=== PATIENT | female | born 1985 | race Caucasian/White ===

== ENCOUNTER 2019-04-07 11:18 | Emergency (ER) | payer MEDICAID ==
[~2019-04-07] VITALS: Ht 162.6 cm; Wt 86.2 kg
[2019-04-07 11:58] LABS: Urine Bacteria FEW /hpf (None Seen); Urine Blood Negative /uL (Negative); Urine Specific Gravity 1.012 (1.001-1.035); Urine WBC <1 /hpf (0 - 5)
[2019-04-07 12:11] LABS: Basophils # (auto) 0 uL; Basophils % (auto) 0.7 % (0.0-2.0); Eosinophils # (auto) 0.1 uL; Eosinophils % (auto) 1.6 % (0.0-7.0); Hematocrit 43.2 % (36.0-46.0); Hemoglobin 14.6 g/dL (12.2-16.2); Lymphocytes # (auto) 1.2 uL; Lymphocytes % (auto) 17.6 % (10.0-50.0); Mean Corpuscular Hgb Conc. 33.7 g/dL (32.0-36.0); Mean Corpuscular Volume 80.3 fL (80.0-100.0); Monocytes # (auto) 0.4 uL; Monocytes % (auto) 6.8 % (0.0-12.0); Neutrophils # (auto) 4.9 uL; Neutrophils % (auto) 73.3 % (37.0-80.0); Nucleated Red Blood Cells % 0.1 %; Platelet Count (auto) 220 10^3/uL (140-450); Red Blood Cells 5.39 10^6/uL (4.0-5.20); Red Cell Distribution Width 13.5 % (11.8-14.3); White Blood Cell 6.6 10^3/uL (4.4-10.8)
[2019-04-07 12:29] LABS: Albumin 3.7 g/dL (3.4-5.0); Anion Gap 5 (5-15); Blood Urea Nitrogen 10 mg/dL (7-18); Calcium 8.5 mg/dL (8.5-10.1); Carbon Dioxide 27 mmol/L (21-32); Chloride 108 mmol/L (98-107); Glucose 95 mg/dL (74-106); Magnesium 2.3 mg/dL (1.6-2.6); Sodium 140 mmol/L (136-145)
[2019-04-07 12:35] LABS: Alanine Aminotransferase 30 U/L (13-56); Alkaline Phosphatase 85 U/L (45-117); Aspartate Aminotransferase 18 U/L (15-37); BUN/Creatinine Ratio 11.5; Bilirubin, Total 0.2 mg/dL (0.2-1.0); GFR African American 95 mL/min; GFR Non-African American 78 mL/min; Total Protein 8.4 g/dL (6.4-8.2)
[2019-04-07 14:30] VITALS: BP 138/88
== END 2019-04-07 14:52 | disposition home or self-care (01) ==
LOC: ER 11:18
DX: R42 Dizziness and giddiness (principal); R06.02 Shortness of breath; R51 Headache; F17.210 Nicotine dependence, cigarettes, uncomplicated; Z98.51 Tubal ligation status; Z90.710 Acquired absence of both cervix and uterus; Z88.0 Allergy status to penicillin
CPT/HCPCS: 36415; 70450; 71046; 80053; 81001; 83735; 84484; 85025; 93005

== ENCOUNTER 2022-07-08 08:32 | Emergency (ER) | payer MEDICAID ==
[~2022-07-08] VITALS: Ht 167.6 cm; Wt 76.0 kg
[2022-07-08] MEDS ORDERED: ASPirin 81 mg TAB PO ONE (09:00)
[2022-07-08 09:13] LABS: Basophils # (auto) 0 10 ^3/uL (0-0.2); Basophils % (auto) 0.5 % (0.0-2.0); Eosinophils # (auto) 0 10 ^3/uL (0-0.8); Eosinophils % (auto) 0.9 % (0.0-7.0); Hematocrit 40.6 % (36.0-46.0); Hemoglobin 13.9 g/dL (12.2-16.2); Lymphocytes # (auto) 0.9 10 ^3/uL (0.4-5.4); Lymphocytes % (auto) 20.9 % (10.0-50.0); Mean Corpuscular Hemoglobin 27.2 pg (28.0-32.0); Mean Corpuscular Hgb Conc. 34.1 g/dL (32.0-36.0); Mean Corpuscular Volume 79.8 fL (80.0-100.0); Monocytes # (auto) 0.3 10 ^3/uL (0-1.3); Monocytes % (auto) 7.9 % (0.0-12.0); Neutrophils % (auto) 69.8 % (37.0-80.0); Nucleated Red Blood Cells % 0.1 %; Red Blood Cells 5.09 10^6/uL (4.0-5.20); Red Cell Distribution Width 12.8 % (11.8-14.3); White Blood Cell 4.3 10^3/uL (4.4-10.8)
[2022-07-08 09:39] LABS: Albumin 3.8 g/dL (3.4-5.0); Calcium 8.5 mg/dL (8.5-10.1); Magnesium 2.1 mg/dL (1.6-2.6); Potassium 4.4 mmol/L (3.5-5.1)
[2022-07-08 09:43] LABS: BUN/Creatinine Ratio 27.3; Bilirubin, Total 0.3 mg/dL (0.2-1.0); Total Protein 7.6 g/dL (6.4-8.2)
[2022-07-08 10:09] LABS: Urine Bacteria FEW /hpf (None Seen); Urine Blood Negative /uL (Negative); Urine Specific Gravity 1.023 (1.001-1.035); Urine WBC <1 /hpf (0 - 5)
[2022-07-08 12:39] VITALS: BP 127/86
== END 2022-07-08 12:41 | disposition home or self-care (01) ==
LOC: ER 08:32
DX: R07.89 Other chest pain (principal); Z98.51 Tubal ligation status; Z90.710 Acquired absence of both cervix and uterus; Z87.891 Personal history of nicotine dependence; Z88.0 Allergy status to penicillin
CPT/HCPCS: 36415; 71045; 80053; 81001; 83735; 83880; 84484; 85025; 85379; 93005

== ENCOUNTER 2023-01-25 18:27 | Emergency (ER) | payer MEDICAID ==
[~2023-01-25] VITALS: Ht 167.6 cm; Wt 75.0 kg
[2023-01-25 18:43] VITALS: BP 122/82
== END 2023-01-25 20:57 | disposition left against medical advice (07) ==
LOC: ER 18:27 → EDBD 18:27 → ER 20:57
DX: F41.9 Anxiety disorder, unspecified (principal); R06.02 Shortness of breath; Z53.21 Procedure and treatment not carried out due to patient leaving prior to being seen by health care provider

== ENCOUNTER 2023-01-28 13:12 | Inpatient (IN) | payer MEDICAID ==
[~2023-01-28] VITALS: Ht 167.6 cm; Wt 76.1 kg
[2023-01-28 13:56] LABS: Basophils # (auto) 0 10 ^3/uL (0-0.2); Basophils % (auto) 0.7 % (0.0-2.0); Eosinophils # (auto) 0 10 ^3/uL (0-0.8); Eosinophils % (auto) 0.3 % (0.0-7.0); Hematocrit 40.3 % (36.0-46.0); Hemoglobin 13.3 g/dL (12.2-16.2); Lymphocytes % (auto) 17.7 % (10.0-50.0); Mean Corpuscular Hemoglobin 26.2 pg (28.0-32.0); Mean Corpuscular Hgb Conc. 33.1 g/dL (32.0-36.0); Mean Corpuscular Volume 79.1 fL (80.0-100.0); Monocytes # (auto) 0.3 10 ^3/uL (0-1.3); Monocytes % (auto) 5.7 % (0.0-12.0); Neutrophils # (auto) 4.2 10 ^3/uL (1.6-8.6); Neutrophils % (auto) 75.6 % (37.0-80.0); Nucleated Red Blood Cells % 0.2 %; Red Blood Cells 5.09 10^6/uL (4.0-5.20); Red Cell Distribution Width 13.2 % (11.8-14.3); White Blood Cell 5.5 10^3/uL (4.4-10.8)
[2023-01-28 14:11] LABS: INR 1.02 (0.9-1.15)
[2023-01-28 14:18] LABS: Albumin 3.9 g/dL (3.4-5.0); Calcium 8.8 mg/dL (8.5-10.1); Magnesium 2.2 mg/dL (1.6-2.6); Potassium 3.8 mmol/L (3.5-5.1)
[2023-01-28 14:22] LABS: BUN/Creatinine Ratio 20.7 (10.0-20.0); Bilirubin, Total 0.4 mg/dL (0.2-1.0); Total Protein 7.5 g/dL (6.4-8.2)
[2023-01-28] MEDS ORDERED: IOHEXOL 350 MG/ML 100ML IJ ONE (14:34)
[2023-01-28 15:35] LABS: Urine Bacteria FEW /hpf (None Seen); Urine Blood Negative /uL (Negative); Urine Mucus FEW (None Seen); Urine Specific Gravity 1.022 (1.001-1.035); Urine WBC <1 /hpf (0 - 5)
[2023-01-28 15:40] LABS: Alcohol, Urine < 3.0 mg/dL (0-10); Amphetamine Screen, Urine NEGATIVE (NEGATIVE); Barbiturate Scree,Urine NEGATIVE (NEGATIVE); Benzodiazephine Screen, Urine NEGATIVE (NEGATIVE); Cannabinoid Screen, Urine NEGATIVE (NEGATIVE); Cocaine Screen, Urine NEGATIVE (NEGATIVE); Phencyclidine Screen, Urine NEGATIVE (NEGATIVE)
[2023-01-28 15:59] LABS: Opiate Scree,Urine NEGATIVE (NEGATIVE)
[2023-01-28] MEDS ORDERED: POTASSIUM CHL 20 Meq TABLET PO ONE (17:45)
[2023-01-28] MEDS ORDERED: NITROGLYCERIN 0.4 MG SL TAB SL PRN (17:45)
[2023-01-28] MEDS ORDERED: MORPHINE SULFATE INJ 2 MG/ml SYRG IV PRN (17:45)
[2023-01-28] MEDS ORDERED: ALBUTEROL SULF 2.5 MG/0.5ML(0.5%) NEB SOLN NEB PRN (18:00)
[2023-01-28 18:19] VITALS: BP 117/76
[2023-01-28] MEDS ORDERED: ALPRAZolam 0.5 MG TAB PO PRN (18:30)
[2023-01-28] MEDS ORDERED: PANTOPRAZOLE 40 MG/10 ML VIAL INJ IV ONE (18:30)
[2023-01-28] MEDS ORDERED: ASPirin 81 mg TAB PO ONE (18:30)
[2023-01-28] MEDS: ENOXAPARIN SOD 40 MG/0.4 ML SYRINGE SC SCH (18:41)
[2023-01-28] MEDS: MAGNESIUM SULFATE 1GM/100ML 100 ML IV SCH (18:42)
[2023-01-28] MEDS: SODIUM CHLORIDE 0.9% 1,000 ML IV SCH (19:02)
[2023-01-28 19:57] LABS: Free T4 (Free Thyroxine) 1.11 ng/dL (0.89-1.76)
[2023-01-28 21:40] VITALS: BP 112/62
[2023-01-28 22:00] VITALS: BP 112/62
[2023-01-28] MEDS: ATORVASTATIN 20 MG TAB PO SCH (22:25)
[2023-01-29] MEDS: SODIUM CHLORIDE 0.9% 1,000 ML IV SCH ×2 (01:45→10:39)
[2023-01-29] MEDS ORDERED: BECL40AE11 IN (02:49)
[2023-01-29 05:42] LABS: Basophils # (auto) 0 10 ^3/uL (0-0.2); Basophils % (auto) 0.9 % (0.0-2.0); Eosinophils # (auto) 0.1 10 ^3/uL (0-0.8); Hematocrit 38.1 % (36.0-46.0); Lymphocytes # (auto) 1.5 10 ^3/uL (0.4-5.4); Monocytes # (auto) 0.5 10 ^3/uL (0-1.3)
[2023-01-29 05:45] LABS: Eosinophils % (auto) 1.8 % (0.0-7.0); Hemoglobin 12.8 g/dL (12.2-16.2); Lymphocytes % (auto) 32.1 % (10.0-50.0); Mean Corpuscular Hemoglobin 26.8 pg (28.0-32.0); Mean Corpuscular Hgb Conc. 33.6 g/dL (32.0-36.0); Mean Corpuscular Volume 79.8 fL (80.0-100.0); Monocytes % (auto) 10.7 % (0.0-12.0); Neutrophils # (auto) 2.5 10 ^3/uL (1.6-8.6); Neutrophils % (auto) 54.5 % (37.0-80.0); Nucleated Red Blood Cells % 0.2 %; Red Blood Cells 4.77 10^6/uL (4.0-5.20); Red Cell Distribution Width 13.2 % (11.8-14.3); White Blood Cell 4.6 10^3/uL (4.4-10.8)
[2023-01-29 05:49] LABS: Potassium 4.3 mmol/L (3.5-5.1)
[2023-01-29 05:59] LABS: Albumin 3.2 g/dL (3.4-5.0); BUN/Creatinine Ratio 20.6 (10.0-20.0); Bilirubin, Total 0.2 mg/dL (0.2-1.0); Calcium 8.3 mg/dL (8.5-10.1); Total Protein 6.8 g/dL (6.4-8.2)
[2023-01-29 09:00] VITALS: BP 110/62
[2023-01-29] MEDS ORDERED: PANTOPRAZOLE 40 MG/10 ML VIAL INJ IV SCH (10:00)
[2023-01-29] MEDS: ASPirin 81 mg TAB PO SCH (10:39)
[2023-01-29] MEDS: ENOXAPARIN SOD 40 MG/0.4 ML SYRINGE SC SCH (10:40)
[2023-01-29] MEDS: METOPROLOL TARTRATE 25 MG TAB PO SCH ×2 (10:40→22:01)
[2023-01-29] MEDS: MAGNESIUM SULFATE 1GM/100ML 100 ML IV SCH (11:30)
[2023-01-29 13:00] VITALS: BP 118/72
[2023-01-29 17:00] VITALS: BP 108/70
[2023-01-29] MEDS: ATORVASTATIN 20 MG TAB PO SCH (21:59)
[2023-01-29 22:00] VITALS: BP 118/69
[2023-01-30 05:00] VITALS: BP_SYST 113; BP_SYST 99; BP_DIAS 52; BP_DIAS 68
[2023-01-30 08:00] VITALS: BP 107/65
[2023-01-30] MEDS: MAGNESIUM SULFATE 1GM/100ML 100 ML IV SCH (10:00)
[2023-01-30] MEDS: ASPirin 81 mg TAB PO SCH (10:03)
[2023-01-30] MEDS: ENOXAPARIN SOD 40 MG/0.4 ML SYRINGE SC SCH (10:04)
[2023-01-30] MEDS: METOPROLOL TARTRATE 25 MG TAB PO SCH (10:04)
[2023-01-30] MEDS ORDERED: ALPR0.25 PO (11:17)
[2023-01-30] MEDS ORDERED: MET25T PO (11:17)
[2023-01-30] MEDS ORDERED: ATOR20TA50 PO (11:17)
[2023-01-30 12:00] VITALS: BP 116/77
[2023-01-30 12:17] VITALS: BP 107/65
== END 2023-01-30 14:00 | disposition home or self-care (01) | DRG 201 ==
LOC: EDUNIT# 13:12 → EDBD 13:12 → ER 13:12 → TELE 17:55 → TELE-CENTR 21:20
PROVIDERS: ADMIT Registered Nurse; ATTEND Nurse Practitioner Acute Care
DX: I47.1 Supraventricular tachycardia (principal); E78.5 Hyperlipidemia, unspecified; F17.200 Nicotine dependence, unspecified, uncomplicated; F32.A Depression, unspecified; F41.9 Anxiety disorder, unspecified; Z20.822 Contact with and (suspected) exposure to COVID-19; R55 Syncope and collapse; J45.909 Unspecified asthma, uncomplicated; Z79.899 Other long term (current) drug therapy; Z85.41 Personal history of malignant neoplasm of cervix uteri; Z88.0 Allergy status to penicillin; Z90.711 Acquired absence of uterus with remaining cervical stump; Z98.51 Tubal ligation status; Z81.8 Family history of other mental and behavioral disorders; Z82.49 Family history of ischemic heart disease and other diseases of the circulatory system; Z83.3 Family history of diabetes mellitus; Z85.42 Personal history of malignant neoplasm of other parts of uterus; Z90.710 Acquired absence of both cervix and uterus
CPT/HCPCS: 36415; 70450; 70551; 71045; 71275; 80053; 80307; 81001; 83735; 83880; 84439; 84443; 84481; 84484; 85025; 85379; 85610; 85730; 87426; 93005; 93306; 93886; 95819; 96365; 96372; 96375; C9113; G0378

== ENCOUNTER 2023-07-27 12:12 | Emergency (ER) | payer MEDICAID ==
[~2023-07-27] VITALS: Ht 167.6 cm; Wt 78.1 kg
[~2023-07-27 12:12] MED LIST: ALPR0.25 PO; ATOR20TA50 PO; BECL40AE11 IN; MET25T PO
[2023-07-27 13:17] LABS: Basophils # (auto) 0 10 ^3/uL (0-0.2); Eosinophils # (auto) 0 10 ^3/uL (0-0.8); Lymphocytes # (auto) 0.8 10 ^3/uL (0.4-5.4); Lymphocytes % (auto) 16.3 % (10.0-50.0); Mean Corpuscular Hgb Conc. 32.8 g/dL (32.0-36.0); Monocytes # (auto) 0.4 10 ^3/uL (0-1.3); Neutrophils # (auto) 3.8 10 ^3/uL (1.6-8.6); White Blood Cell 5.1 10^3/uL (4.4-10.8)
[2023-07-27 13:19] LABS: Basophils % (auto) 0.3 % (0.0-2.0); Eosinophils % (auto) 0.2 % (0.0-7.0); Hematocrit 41.6 % (36.0-46.0); Hemoglobin 13.7 g/dL (12.2-16.2); Mean Corpuscular Hemoglobin 26.6 pg (28.0-32.0); Mean Corpuscular Volume 81.1 fL (80.0-100.0); Monocytes % (auto) 8.6 % (0.0-12.0); Neutrophils % (auto) 74.6 % (37.0-80.0); Red Blood Cells 5.14 10^6/uL (4.0-5.20); Red Cell Distribution Width 13.1 % (11.8-14.3)
[2023-07-27] MEDS ORDERED: IOHEXOL 350 MG/ML 100ML IJ ONE (13:24)
[2023-07-27 13:34] LABS: Alanine Aminotransferase 72 U/L (7-40); Albumin 4.3 g/dL (3.2-4.8); Alkaline Phosphatase 67 U/L (46-116); Anion Gap 6 (5-15); Aspartate Aminotransferase 39 U/L (13-40); BUN/Creatinine Ratio 13.2 (10.0-20.0); Blood Urea Nitrogen 9 mg/dL (9-23); Calcium 8.9 mg/dL (8.7-10.4); Carbon Dioxide 25 mmol/L (20-30); Chloride 108 mmol/L (98-107); Glucose 101 mg/dL (74-106); Magnesium 1.9 mg/dL (1.6-2.6); Sodium 139 mmol/L (136-145)
[2023-07-27 13:35] LABS: Bilirubin, Total 0.4 mg/dL (0.2-1.0); Total Protein 7.4 g/dL (5.7-8.2)
[2023-07-27 14:20] LABS: INR 1.04 (0.9-1.15); Partial Thromboplastin Time 28.7 SEC (24.5-34.5); Prothrombin Time 10.9 sec (9.3-11.8)
[2023-07-27 14:49] VITALS: BP 132/84; PULSE 107; RESP 18; TEMP 97.8; O2SAT 99
== END 2023-07-27 14:15 | disposition home or self-care (01) ==
LOC: ER 12:12
DX: R20.2 Paresthesia of skin (principal); R20.0 Anesthesia of skin; E78.5 Hyperlipidemia, unspecified; F32.9 Major depressive disorder, single episode, unspecified; Z98.51 Tubal ligation status; Z87.891 Personal history of nicotine dependence; Z79.01 Long term (current) use of anticoagulants; Z79.899 Other long term (current) drug therapy
CPT/HCPCS: 36415; 70450; 70496; 71045; 80053; 82962; 83735; 83880; 84484; 85025; 85610; 85730; 99285; Q9967

== ENCOUNTER 2024-01-19 19:40 | Emergency (ER) | payer MEDICAID ==
[~2024-01-19] VITALS: Ht 167.6 cm; Wt 76.4 kg
[2024-01-19 20:03] LABS: Basophils # (auto) 0 10 ^3/uL (0-0.2); Basophils % (auto) 0.6 % (0.0-2.0); Eosinophils # (auto) 0.1 10 ^3/uL (0-0.8); Eosinophils % (auto) 0.8 % (0.0-7.0); Lymphocytes # (auto) 1.5 10 ^3/uL (0.4-5.4); Monocytes # (auto) 0.6 10 ^3/uL (0-1.3)
[2024-01-19 20:06] LABS: Hematocrit 42.3 % (36.0-46.0); Hemoglobin 13.9 g/dL (12.2-16.2); Lymphocytes % (auto) 24.6 % (10.0-50.0); Mean Corpuscular Hemoglobin 26.3 pg (28.0-32.0); Mean Corpuscular Hgb Conc. 32.8 g/dL (32.0-36.0); Mean Corpuscular Volume 80.2 fL (80.0-100.0); Monocytes % (auto) 9.6 % (0.0-12.0); Neutrophils % (auto) 64.4 % (37.0-80.0); Nucleated Red Blood Cells % 0.2 %; Red Blood Cells 5.27 10^6/uL (4.0-5.20); Red Cell Distribution Width 12.5 % (11.8-14.3); White Blood Cell 6.2 10^3/uL (4.4-10.8)
[2024-01-19 20:26] LABS: Alanine Aminotransferase 20 U/L (7-40); Alkaline Phosphatase 69 U/L (46-116); Anion Gap 8 (5-15); Aspartate Aminotransferase 17 U/L (13-40); BUN/Creatinine Ratio 14.7 (10.0-20.0); Blood Urea Nitrogen 10 mg/dL (9-23); Calcium 9.5 mg/dL (8.5-10.1); Carbon Dioxide 25 mmol/L (20-30); Chloride 107 mmol/L (98-107); Glucose 87 mg/dL (74-106); Magnesium 1.9 mg/dL (1.6-2.6); Potassium 4.1 mmol/L (3.5-5.1); Sodium 140 mmol/L (136-145)
[2024-01-19 20:27] LABS: Albumin 4.2 g/dL (3.2-4.8); INR 1.05 (0.9-1.15); Partial Thromboplastin Time 27.8 SEC (24.5-34.5); Prothrombin Time 11.1 sec (9.3-11.8); Total Protein 7.3 g/dL (5.7-8.2)
[2024-01-19 20:28] LABS: Bilirubin, Total 0.4 mg/dL (0.2-1.0)
[2024-01-19 21:10] VITALS: BP 113/70; PULSE 93; RESP 16; TEMP 98.9; O2SAT 96
== END 2024-01-19 20:45 | disposition home or self-care (01) ==
LOC: ER 19:40
DX: R07.89 Other chest pain (principal); M54.59 Other low back pain; F41.9 Anxiety disorder, unspecified; F32.9 Major depressive disorder, single episode, unspecified; E78.5 Hyperlipidemia, unspecified; Z85.9 Personal history of malignant neoplasm, unspecified; Z98.890 Other specified postprocedural states; Z88.0 Allergy status to penicillin; Z88.2 Allergy status to sulfonamides; Z79.899 Other long term (current) drug therapy
CPT/HCPCS: 36415; 71045; 80053; 83735; 83880; 84484; 85025; 85610; 85730; 93005

== ENCOUNTER 2024-01-22 08:40 | Inpatient (IN) | payer MEDICAID ==
[~2024-01-22] VITALS: Ht 167.6 cm; Wt 76.7 kg
[2024-01-22 09:19] LABS: Basophils # (auto) 0 10 ^3/uL (0-0.2); Basophils % (auto) 0.4 % (0.0-2.0); Eosinophils # (auto) 0 10 ^3/uL (0-0.8); Neutrophils # (auto) 5.6 10 ^3/uL (1.6-8.6); Nucleated Red Blood Cells % 0.1 %
[2024-01-22 09:21] LABS: Eosinophils % (auto) 0.5 % (0.0-7.0); Hematocrit 43.6 % (36.0-46.0); Hemoglobin 14.3 g/dL (12.2-16.2); Lymphocytes # (auto) 0.8 10 ^3/uL (0.4-5.4); Mean Corpuscular Hemoglobin 26.4 pg (28.0-32.0); Mean Corpuscular Hgb Conc. 32.9 g/dL (32.0-36.0); Mean Corpuscular Volume 80.3 fL (80.0-100.0); Monocytes # (auto) 0.5 10 ^3/uL (0-1.3); Monocytes % (auto) 7.2 % (0.0-12.0); Neutrophils % (auto) 79.9 % (37.0-80.0); Red Blood Cells 5.43 10^6/uL (4.0-5.20); Red Cell Distribution Width 12.7 % (11.8-14.3)
[2024-01-22 09:41] LABS: Urine Bacteria FEW /hpf (None Seen); Urine Blood Negative /uL (Negative); Urine Clarity Turbid (Clear); Urine Color Yellow (Yellow); Urine Mucus FEW (None Seen); Urine Protein, UAD TRACE (Negative); Urine Specific Gravity 1.037 (1.001-1.035); Urine Urobilinogen 2 mg/dL (Negative); Urine WBC 1 /hpf (0 - 5); Urine pH 5.5 (5.0-9.0)
[2024-01-22 09:50] LABS: Alanine Aminotransferase 19 U/L (7-40); Albumin 4.3 g/dL (3.2-4.8); Alkaline Phosphatase 68 U/L (46-116); Anion Gap 7 (5-15); Aspartate Aminotransferase 11 U/L (13-40); BUN/Creatinine Ratio 18.3 (10.0-20.0); Bilirubin, Total 0.5 mg/dL (0.2-1.0); Blood Urea Nitrogen 13 mg/dL (9-23); Calcium 9.8 mg/dL (8.5-10.1); Carbon Dioxide 26 mmol/L (20-30); Chloride 107 mmol/L (98-107); Glucose 90 mg/dL (74-106); Magnesium 1.9 mg/dL (1.6-2.6); Potassium 3.8 mmol/L (3.5-5.1); Sodium 140 mmol/L (136-145); Total Protein 7.7 g/dL (5.7-8.2)
[2024-01-22] MEDS: ASPirin 325 MG TAB PO ONE (11:36)
[2024-01-22] MEDS: NITROGLYCERIN 0.4 MG SL TAB SL ONE (11:37)
[2024-01-22] MEDS ORDERED: ACETAMINOPHEN 325 MG TAB PO PRN (14:15)
[2024-01-22] MEDS ORDERED: ONDANSETRON HCL 4 MG/2 ML VIAL IV PRN (14:15)
[2024-01-22] MEDS ORDERED: MORPHINE SULFATE 4 MG/ML SYR/VIAL IV PRN (14:15)
[2024-01-22] MEDS ORDERED: NITROGLYCERIN 0.4 MG SL TAB SL PRN (14:15)
[2024-01-22] MEDS: DexAMETHasone SOD PHOS 10MG/1ML VIAL INJ IV ONE (15:08)
[2024-01-22] MEDS: KETOROLAC TROMETH 30 MG/ML 1ML VIAL IV ONE (15:08)
[2024-01-22 16:07] LABS: INR 1.08 (0.9-1.15); Prothrombin Time 11.4 sec (9.3-11.8)
[2024-01-22 18:22] VITALS: PULSE 84; RESP 20; O2SAT 96
[2024-01-22] MEDS: DexAMETHasone SOD PHOS 4 MG/1ML SDV INJ IV SCH (18:46)
[2024-01-22 19:47] VITALS: BP 114/54; PULSE 98; RESP 17; TEMP 98.6; O2SAT 99
[2024-01-22] MEDS ORDERED: METOPROLOL TARTRATE 25 MG TAB PO SCH (22:00)
[2024-01-22] MEDS ORDERED: KETOROLAC TROMETH 30 MG/ML 1ML VIAL IV PRN (22:00)
[2024-01-22] MEDS ORDERED: ATORVASTATIN 20 MG TAB PO SCH (22:00)
[2024-01-23] MEDS ORDERED: DOCUSATE SOD 100 MG CAP PO SCH (10:00)
[2024-01-23] MEDS ORDERED: ASPirin 81 mg TAB PO SCH (10:00)
== END 2024-01-22 20:09 | disposition left against medical advice (07) | DRG 347 ==
LOC: ER 08:40 → TELE 14:20
PROVIDERS: ADMIT Nurse Practitioner Family; ATTEND Nurse Practitioner Family
DX: M54.2 Cervicalgia (principal); I24.9 Acute ischemic heart disease, unspecified; I47.10 Supraventricular tachycardia, unspecified; M25.512 Pain in left shoulder; Z53.29 Procedure and treatment not carried out because of patient's decision for other reasons; I10 Essential (primary) hypertension; F41.9 Anxiety disorder, unspecified; F32.A Depression, unspecified; E78.5 Hyperlipidemia, unspecified; Z88.0 Allergy status to penicillin; Z88.2 Allergy status to sulfonamides; Z79.899 Other long term (current) drug therapy; Z85.41 Personal history of malignant neoplasm of cervix uteri; Z90.710 Acquired absence of both cervix and uterus
CPT/HCPCS: 36415; 73030; 80053; 81001; 81025; 83735; 84484; 85025; 85610; 93005; G0378; J1100; J1885

== ENCOUNTER 2024-01-27 08:54 | Emergency (ER) | payer MEDICAID ==
[~2024-01-27] VITALS: Ht 167.6 cm; Wt 75.9 kg
[2024-01-27 09:19] LABS: Basophils # (auto) 0 10 ^3/uL (0-0.2); Basophils % (auto) 0.4 % (0.0-2.0); Eosinophils # (auto) 0.1 10 ^3/uL (0-0.8); Eosinophils % (auto) 1.1 % (0.0-7.0); Hematocrit 41.5 % (36.0-46.0); Hemoglobin 13.6 g/dL (12.2-16.2); Lymphocytes # (auto) 1.1 10 ^3/uL (0.4-5.4); Lymphocytes % (auto) 16.8 % (10.0-50.0); Mean Corpuscular Hemoglobin 26.3 pg (28.0-32.0); Mean Corpuscular Hgb Conc. 32.7 g/dL (32.0-36.0); Mean Corpuscular Volume 80.5 fL (80.0-100.0); Monocytes # (auto) 0.6 10 ^3/uL (0-1.3); Monocytes % (auto) 9.5 % (0.0-12.0); Neutrophils # (auto) 4.6 10 ^3/uL (1.6-8.6); Neutrophils % (auto) 72.2 % (37.0-80.0); Red Blood Cells 5.16 10^6/uL (4.0-5.20); Red Cell Distribution Width 12.7 % (11.8-14.3); White Blood Cell 6.4 10^3/uL (4.4-10.8)
[2024-01-27 09:32] LABS: Alanine Aminotransferase 18 U/L (7-40); Albumin 4.1 g/dL (3.2-4.8); Alkaline Phosphatase 62 U/L (46-116); Anion Gap 3 (5-15); Aspartate Aminotransferase 12 U/L (13-40); BUN/Creatinine Ratio 13.3 (10.0-20.0); Blood Urea Nitrogen 10 mg/dL (9-23); Calcium 9.2 mg/dL (8.5-10.1); Carbon Dioxide 28 mmol/L (20-30); Chloride 108 mmol/L (98-107); Glucose 96 mg/dL (74-106); Potassium 4.2 mmol/L (3.5-5.1); Sodium 139 mmol/L (136-145)
[2024-01-27 09:33] LABS: Bilirubin, Total 0.5 mg/dL (0.2-1.0); Total Protein 7.2 g/dL (5.7-8.2)
[2024-01-27 10:38] LABS: Urine Bacteria None Seen /hpf (None Seen)
[2024-01-27 10:53] LABS: Urine Blood Negative /uL (Negative); Urine Clarity Clear (Clear); Urine Color Yellow (Yellow); Urine Mucus FEW (None Seen); Urine Protein, UAD Negative (Negative); Urine Specific Gravity 1.024 (1.001-1.035); Urine Urobilinogen 2 mg/dL (Negative); Urine WBC <1 /hpf (0 - 5); Urine pH 6.5 (5.0-9.0)
[2024-01-27 13:06] VITALS: BP 111/64; TEMP 98.2
[2024-01-27 13:07] VITALS: PULSE 95; RESP 20; O2SAT 96
== END 2024-01-27 13:10 | disposition home or self-care (01) ==
LOC: ER 08:54
DX: R07.89 Other chest pain (principal); R51.9 Headache, unspecified; E78.5 Hyperlipidemia, unspecified; F32.9 Major depressive disorder, single episode, unspecified; F41.9 Anxiety disorder, unspecified; Z85.9 Personal history of malignant neoplasm, unspecified; Z98.890 Other specified postprocedural states; Z88.2 Allergy status to sulfonamides; Z88.0 Allergy status to penicillin; Z79.899 Other long term (current) drug therapy
CPT/HCPCS: 36415; 71045; 80053; 81001; 84484; 85025; 93005

== ENCOUNTER 2024-02-02 01:33 | Emergency (ER) | payer MEDICAID ==
[~2024-02-02] VITALS: Ht 170.2 cm; Wt 77.1 kg
[2024-02-02 04:12] VITALS: BP 112/78; PULSE 97; RESP 16; TEMP 98.2; O2SAT 98
== END 2024-02-02 04:16 | disposition home or self-care (01) ==
LOC: ER 01:33 → EDBD 01:33 → ER 04:16
DX: R07.89 Other chest pain (principal); F41.9 Anxiety disorder, unspecified; F32.9 Major depressive disorder, single episode, unspecified; E78.5 Hyperlipidemia, unspecified; Z85.9 Personal history of malignant neoplasm, unspecified; Z98.890 Other specified postprocedural states; Z88.0 Allergy status to penicillin; Z88.8 Allergy status to other drugs, medicaments and biological substances; Z79.899 Other long term (current) drug therapy
CPT/HCPCS: 36415; 84484; 93005

== ENCOUNTER 2024-09-01 07:10 | Emergency (ER) | payer MEDICAID ==
[~2024-09-01] VITALS: Ht 167.6 cm; Wt 71.0 kg
[2024-09-01 07:53] VITALS: BP 100/60; PULSE 73; RESP 16; TEMP 98.1; O2SAT 99
[2024-09-01] MEDS ORDERED: AZIT-185 PO (08:17)
[2024-09-01] MEDS ORDERED: PROM1SOL4 PO (08:17)
--- NOTE | 2024-09-01 08:21 | ED.PDOC ---
SOB-HPI HPI Comments A 39 YEAR OLD FEMALE PRESENTS TO THE ED WITH COMPLAINT OF COUGH AND BODY ACHES. PATIENT STATES SHE HAS BEEN EXPERIENCING A COUGH, CONGESTION, AND BODY ACHES FOR THE PAST 1 WEEK. PATIENT NOTES SHE HAS A HISTORY OF ASTHMA AND WOULD LIKE TO HAVE A CHEST X-RAY DONE. PATIENT DENIES FEVER, CHILLS, SHORTNESS OF BREATH, CHEST PAIN, ABDOMINAL PAIN, NAUSEA, VOMITING, HEADACHE, OR OTHER COMPLAINTS. NO OTHER SYMPTOMS OR MODIFYING FACTORS AT THIS TIME. PATIENT IS ALERT, ORIENTED X 4, AND HAS STEADY GAIT. 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 Family History Family History: Reviewed,noncontributory to illness, Family hx of heart elizabeth Social History Smoker: Non-Smoker Alcohol: Denies ETOH Use Drugs: Denies Drug Use Lives In: Home Constitutional: denies: chills, diaphoresis, fatigue, fever, malaise, sweats, weakness, others EENTM: reports: nose congestion; denies: blurred vision, double vision, ear bleeding, ear discharge, ear drainage, ear pain, ear ringing, eye pain, eye redness, hearing loss, mouth pain, mouth swelling, nasal discharge, nose bleeding, nose pain, photophobia, tearing, throat pain, throat swelling, voice changes, others Respiratory: reports: cough; denies: hemoptysis, orthopnea, SOB at rest, shortness of breath, SOB with excertion, stridor, wheezing, others Cardiovascular: denies: chest pain, dizzy spells, diaphoresis, Dyspnea on exertion, edema, irregular heart beat, left arm pain, lightheadedness, palpitations, PND, syncope, others Gastrointestinal: denies: abdomen distended, abdominal pain, blood streaked bowels, constipated, diarrhea, dysphagia, difficulty swallowing, hematemesis, me piedad, nausea, poor appetite, poor fluid intake, rectal bleeding, rectal pain, vomiting, others Genitourinary: denies: abnormal vagina bleeding, burning, dyspareunia, dysuria, flank pain, frequency, hematuria, incontinence, pain, , vagina discharge, urgency, others Neurological: denies: dizziness, fainting, headache, left sided numbness, left sided weakness, numbness, paresthesia, pre-existing deficit, right sided numbness, right sided weakness, seizure, speech problems, tingling, tremors, weakness, others Musculoskeletal: reports: muscle pain; denies: back pain, gout, joint pain, joint swelling, muscle stiffness, neck pain, others Integumetry: denies: bruises, change in color, change in hair/nails, dryness, laceration, lesions, lumps, rash, wounds, others Allergic/Immunocompromised: denies: Difficulty Healing, Frequent Infections, Hives, Itching, others Hematologic/Lymphatic: denies: anemia, blood clots, easy bleeding, easy bruising, swollen glands, others Endocrine: denies: excessive hunger, excessive sweating, excessive thirst, excessive urination, flushing, intolerance to cold, intolerance to heat, unexplained weight gain, unexplained weight loss, others Psychiatric: denies: anxiety, bipolar disorder, depression, hopeless, panic disorder, schizophrenia, sleepless, suicidal, others All Other Systems: Reviewed and Negative Physical Exam General Appearance: No Apparent Distress, Normal HEENT: Normal ENT Inspection, PERRL/EOMI, Pharynx Normal, TMs Normal Neck: Full Range of Motion, Non-Tender, Normal, Normal Inspection Respiratory: Chest Non-Tender, Expiration, No Accessory Muscle Use, No Respiratory Distress, Rhonchi Cardiovascular: No Edema, No JVD, No Murmur, No Gallop, Normal Peripheral Pulses, Regular Rate/Rhythm Breast Exam: Deferred Gastrointestinal: No Organomegaly, Non Tender, No Pulsatile Mass, Normal Bowel Sounds, Soft Genitalia: Deferred Pelvic: Deferred Rectal: Deferred Extremities: No calf tenderness, Normal capillary refill, Normal inspection, Normal range of motion, Non-tender, No pedal edema Musculoskeletal : Apperance: Normal Neurologic: Alert, optical instrument assembler II-XII nml as Tested, No Motor Deficits, Normal Affect, Normal Mood, No Sensory Deficits Cerebellar Function: Normal Reflexes: Normal Skin: Dry, Normal Color, Warm Peripheral Pulses: 2+ carotid (R), 2+ carotid (L) Lymphatic: No Adenopathy Was a procedure done? Was a procedure done?: No Differential Dx Differential Diagnosis: Asthma, Bronchitis, Pneumonia, Sinusitis, Allergic Rhinitis, Otitis Media, Pharyngitis, URI X-Ray, Labs, Meds, VS Vital Signs Date Time Temp Pulse Resp B/P (MAP) Pulse Ox O2 Delivery O2 Flow Rate FiO2 09/01/24 07:53 98.1 73 16 100/60 (73) 99 98.1 09/01/24 07:53 73 16 99 Room Air 09/01/24 07:30 98.1 73 16 100/60 (73) 99 09/01/24 07:30 16 99 Room Air* 0 21 XY CHEST TWO VIEWS ROUTINE CLINICAL HISTORY: COUGH COMPARISON: CHEST TWO VIEWS ROUTINE on DOS: 01/26/2014 TECHNIQUE: Frontal and lateral view of the chest was obtained FINDINGS: Lines and Tubes: None Lungs: No focal consolidation. Pleura: No effusion. No pneumothorax. Cardiomediastinal contours: Unremarkable Bones: No acute osseous abnormality. IMPRESSION: 1. No acute cardiopulmonary disease. ATED BY: BOB OTT MD DICTATED DATE/TIME: 09/01/24818 SIGNED BY: BOB OTT MD SIGNED DATE/TIME: 09/01/24818 CC: X-Ray, Labs, Meds, VS Comment EXTERNAL MEDICAL RECORDS REVIEWED: [NONE] INDEPENDENT HISTORIANS: [NONE] SOCIAL DETERMINANTS OF HEALTH: [NONE] LABS ORDERED: NONE REVIEWED AND INTERPRETED RESULTS: NONE IMAGING ORDERED: XR CHEST PROCEDURES PERFORMED: NONE CRITICAL CARE TIME: NONE I HAVE DISCUSSED THE PATIENT WITH THE ATTENDING PHYSICIAN DR. PEREA AND HE AGREES WITH THE PATIENT'S PLAN OF CARE AND DISPOSITION. BASED ON HISTORY OF PRESENT ILLNESS, AND PHYSICAL EXAM, PATIENT WILL BE DISCHARGED HOME. DISCUSSED PLAN FOR DISCHARGE HOME WITH RX [AZITHROMYCIN AND PHENERGAN DM]. MEDICATION WARNINGS GIVEN. SHARED DECISION MAKING: PATIENT INSTRUCTED TO FOLLOW UP WITH PRIMARY CARE PROVIDER IN 1-2 DAYS FOR RE-EVALUATION OF SYMPTOMS. PATIENT VERBALIZES UNDERSTANDING TO RETURN TO ED FOR NEW OR WORSENING SYMPTOMS OR IF FOLLOW UP WITH PCP CANNOT BE OBTAINED. PATIENT FEELS COMFORTABLE GOING HOME AT THIS TIME. ALL QUESTIONS ADDRESSED AT TIME OF DISCHARGE. Images Reviewed?: Images reviewed and evaluated by me Time of 1ST Reevaluation: 08:30 Reevaluation 1ST: Improved Patient Education/Counseling: Diagnosis, Treatment, Need For Follow Up Family Education/Counseling: Diagnosis, Treatment, Need For Follow Up Medical Screening: No EMC Exist At This Time Departure 1 Departure Time of Disposition: 08:40 Impression: Primary Impression: Acute bronchitis Qualified Codes: J20.9 - Acute bronchitis, unspecified Disposition: 01 HOME / SELF CARE / HOMELESS Condition: Stable Additional Instructions: FOLLOW-UP WITH PCP IN 1 TO 2 DAYS. TAKE MEDICATIONS PRESCRIBED. RETURN TO ED FOR ANY NEW OR WORSENING SYMPTOMS. e-Prescriptions Promethazine-Dm (Promethazine Dm 6.25-15 mg/5Ml) 1 Concetta Concetta 5 ML PO TID, #150 ML Prov: CHRIS MARX 09/01/24 Azithromycin (ZITHROMAX TABLET) 250 Mg Tb 250 MG PO DAILY, #6 TAB Prov: CHRIS MARX 09/01/24 Discharged With: Self Critical Care Note Critical Care Time?: No Stability Stability form required: No Heart Score Heart Score: Heart Score Response (Comments) Value History N/A 0 EKG N/A 0 Age N/A 0 Risk Factors N/A 0 Troponin N/A 0 Total 0 I personally scribed for CHRIS MARX ([email or web address]) on 09/01/24 at 08:21. Electronically submitted by Odin Good ([employer]). I personally scribed for CHRIS MARX ([email or web address]) on 09/01/24 at 08:23. Electronically submitted by Odin Good ([email or web address]). CHRIS MARX Sep 01, 2024 08:21
--- NOTE | 2024-09-02 06:38 | ECG ---
[facility] Test Date: 2024-09-01 Test Time: 07:32:56 Pat Name: RAHUL JOE Department: ER Room: Gender: F Digital Marketing Strategist: DR DE LEON: 1985 Requested By: CHRIS MARX Order Number: [id number] Reading MD: Mamadou Fierro Measurements Intervals [place] Rate: 65 P: 70 NM: 161 QRS: 82 QRSD: 94 T: 115 QT: 409 QTc: 426 Interpretive Statements Sinus rhythm RSR' in V1 or V2, right VCD or RVH Abnormal T, consider ischemia, lateral leads Electronically Signed On 09-02-2024 10:29:57 PST by Mamadou Fierro Please click the below link to view image of tracing.
== END 2024-09-01 08:26 | disposition home or self-care (01) ==
LOC: ER 07:10
DX: J20.9 Acute bronchitis, unspecified (principal); F41.9 Anxiety disorder, unspecified; F32.9 Major depressive disorder, single episode, unspecified; J45.909 Unspecified asthma, uncomplicated; E78.5 Hyperlipidemia, unspecified; Z85.9 Personal history of malignant neoplasm, unspecified; Z90.710 Acquired absence of both cervix and uterus; Z98.890 Other specified postprocedural states; Z79.899 Other long term (current) drug therapy
CPT/HCPCS: 71046; 93005

== ENCOUNTER 2025-03-20 09:41 | Emergency (ER) | payer MEDICAID, OTHER ==
[~2025-03-20] VITALS: Ht 167.6 cm; Wt 73.0 kg
[~2025-03-20 09:41] MED LIST changes: +AZIT-185 PO; +PROM1SOL4 PO
--- NOTE | 2025-03-20 09:52 | ECG ---
[facility] Test Date: 2025-03-20 Test Time: 09:50:45 Pat Name: RAHUL CACERES Department: ER Room: Gender: F High School Guidance Counselor: JADEN : 1985 Requested By: GREGOR HINES Order Number: [id number] Reading MD: Measurements Intervals [place] Rate: 74 P: 54 UT: 160 QRS: 80 QRSD: 92 T: 71 QT: 386 QTc: 429 Interpretive Statements Sinus rhythm Please click the below link to view image of tracing.
--- NOTE | 2025-03-20 10:26 | ED.PDOC ---
HPI Comments 40 y/o f, with PMHx of SVT, HTN, Lupus, asthma, and Sjgren's presents to the ED for CC of chest pain. Patient states, she has been experiencing left-sided chest pain that radiates to her back x1day. Patient reports, pain to be worsening with inspiration and while sitting or repositioning. Patient comments, on slight shortness of breath. Patient denies leg swelling, fever, chills, cough, fatigue, weakness, nausea, or vomiting. No other symptoms or modifying factors present at this time. Chief Complaint: Chest Pain Time Seen by MD: 10:00 Primary Care Provider: susan Santiago Notes: Nurses Notes, Medications, Allergies Information Source: Patient Mode of Arrival: Ambulatory Severity: Moderate Timing: Days Duration: Since onset Prehospital treatment: None Location: Chest (L) Radiation: Back Onset: At Rest Cardiac Risk Factors: HTN PE Risk Factors: None History of: None Modifying Factors: Nothing Associated Signs and Symptoms: SOB Past Medical History PAST MEDICAL HISTORY: Asthma, HTN Past Medical History (Other): LUPUS, SJOGREN'S, SVT Surgical History: Denies all surgeries AIR DEFENCE OFFICER History: Denies all AIR DEFENCE OFFICER Hx Family History Family History: Unknown Social History Smoker: Non-Smoker Alcohol: Denies ETOH Use Drugs: Denies Drug Use Lives In: Home Constitutional: denies: chills, diaphoresis, fatigue, fever, malaise, sweats, weakness, others EENTM: denies: blurred vision, double vision, ear bleeding, ear discharge, ear drainage, ear pain, ear ringing, eye pain, eye redness, hearing loss, mouth pain, mouth swelling, nasal discharge, nose bleeding, nose congestion, nose pain, photophobia, tearing, throat pain, throat swelling, voice changes, others Respiratory: reports: shortness of breath; denies: cough, hemoptysis, orthopnea, SOB at rest, SOB with excertion, stridor, wheezing, others Cardiovascular: reports: chest pain; denies: dizzy spells, diaphoresis, Dyspnea on exertion, edema, irregular heart beat, left arm pain, lightheadedness, palpitations, PND, syncope, others Gastrointestinal: denies: abdomen distended, abdominal pain, blood streaked bowels, constipated, diarrhea, dysphagia, difficulty swallowing, hematemesis, me piedad, nausea, poor appetite, poor fluid intake, rectal bleeding, rectal pain, vomiting, others Genitourinary: denies: abnormal vagina bleeding, burning, dyspareunia, dysuria, flank pain, frequency, hematuria, incontinence, pain, , vagina discharge, urgency, others Neurological: denies: dizziness, fainting, headache, left sided numbness, left sided weakness, numbness, paresthesia, pre-existing deficit, right sided numbness, right sided weakness, seizure, speech problems, tingling, tremors, weakness, others Musculoskeletal: denies: back pain, gout, joint pain, joint swelling, muscle pain, muscle stiffness, neck pain, others Integumetry: denies: bruises, change in color, change in hair/nails, dryness, laceration, lesions, lumps, rash, wounds, others Allergic/Immunocompromised: denies: Difficulty Healing, Frequent Infections, Hives, Itching, others Hematologic/Lymphatic: denies: anemia, blood clots, easy bleeding, easy bruising, swollen glands, others Endocrine: denies: excessive hunger, excessive sweating, excessive thirst, excessive urination, flushing, intolerance to cold, intolerance to heat, unexplained weight gain, unexplained weight loss, others Psychiatric: denies: anxiety, bipolar disorder, depression, hopeless, panic disorder, schizophrenia, sleepless, suicidal, others All Other Systems: Reviewed and Negative Physical Exam General Appearance: No Apparent Distress, Normal HEENT: Normal ENT Inspection, Pharynx Normal Neck: Full Range of Motion, Non-Tender, Normal, Normal Inspection Respiratory: Chest Non-Tender, Lungs Clear, No Accessory Muscle Use, No Respiratory Distress, Normal Breath Sounds Cardiovascular: No Edema, No Murmur, No Gallop, Normal Peripheral Pulses, Regular Rate/Rhythm Breast Exam: Deferred Gastrointestinal: No Organomegaly, Non Tender, No Pulsatile Mass, Normal Bowel Sounds, Soft Genitalia: Deferred Pelvic: Deferred Rectal: Deferred Extremities: No calf tenderness, Normal capillary refill, Normal inspection, Normal range of motion, Non-tender, No pedal edema Musculoskeletal : Apperance: Normal Neurologic: Alert, development assistant II-XII nml as Tested, No Motor Deficits, Normal Affect, Normal Mood, No Sensory Deficits Cerebellar Function: Normal Reflexes: Normal Skin: Dry, Normal Color, Warm Lymphatic: No Adenopathy Was a procedure done? Was a procedure done?: No CP Differential Dx Differential Diagnosis: Anxiety / Panic Attack, Pulmonary Embolus Differential Diagnosis: HTN Essential, HTN Accelerated Differential Diagnosis: Angina, Chest Wall Pain, Costochondritis, Esophageal reflux/spasm, Gastritis X-Ray, Labs, Meds, VS Vital Signs Date Time Temp Pulse Resp B/P (MAP) Pulse Ox O2 Delivery O2 Flow Rate FiO2 03/20/25 12:50 76 03/20/25 11:09 98.2 95 18 108/64 (79) 94 98.2 03/20/25 10:50 80 03/20/25 09:50 74 03/20/25 09:49 98.4 81 16 121/57 (78) 99 98.4 Lab Test 03/20/25 13:16 03/20/25 10:54 03/20/25 09:59 Range/Units Troponin I High Sensitivity Pending 12 12 </=34 ng/L White Blood Count 6.6 4.4-10.8 10^3/uL Red Blood Count 5.56 H 4.0-5.20 10^6/uL Hemoglobin 14.6 12.2-16.2 g/dL Hematocrit 44.2 36.0-46.0 % Mean Corpuscular Volume 79.5 L 80.0-100.0 fL Mean Corpuscular Hemoglobin 26.2 L 28.0-32.0 pg Mean Corpuscular Hemoglobin Concent 32.9 32.0-36.0 g/dL Red Cell Distribution Width 13.3 11.8-14.3 % Platelet Count 206 140-450 10^3/uL Mean Platelet Volume 9.6 6.9-10.8 fL Neutrophils (%) (Auto) 75.0 37.0-80.0 % Lymphocytes (%) (Auto) 15.2 10.0-50.0 % Monocytes (%) (Auto) 8.5 0.0-12.0 % Eosinophils (%) (Auto) 0.7 0.0-7.0 % Basophils (%) (Auto) 0.6 0.0-2.0 % Neutrophils # (Auto) 5.0 1.6-8.6 10 ^3/uL Lymphocytes # (Auto) 1.0 0.4-5.4 10 ^3/uL Monocytes # (Auto) 0.6 0-1.3 10 ^3/uL Eosinophils # (Auto) 0 0-0.8 10 ^3/uL Basophils # (Auto) 0 0-0.2 10 ^3/uL Nucleated Red Blood Cells 0.1 % Sodium Level 138 136-145 mmol/L Potassium Level 4.1 3.5-5.1 mmol/L Chloride Level 103 98-107 mmol/L Carbon Dioxide Level 28 20-31 mmol/L Anion Gap 7 5-15 Blood Urea Nitrogen 12 9-23 mg/dL Creatinine 0.71 0.550-1.02 mg/dL Glomerular Filtration Rate Calc 109 >90 mL/min BUN/Creatinine Ratio 16.9 10.0-20.0 Serum Glucose 87 74-106 mg/dL Calcium Level 10.2 8.7-10.4 mg/dL [place] [address] Ph: [phone] DIAGNOSTIC IMAGING Diagnostic Imaging Report : [id number] Signed PATIENT: RAHUL CAMARENACCT: [id number] UNIT: [id number] : 1985 LOC: ER ROOM / BED: / AGE / SEX: 40 / F ADM STATUS: REG ER SERVICE 1015 ORDERING PHYSICIAN: GREGOR HINES MD PROCEDURE(s): CXRP - CHEST PORTABLE REASON: chest pain ORDER NUMBER(s): [id number], ACCESSION NUMBER(s): [id number] EXAM: XY CHEST PORTABLE HISTORY: chest pain COMPARISON: None TECHNIQUE: Portable AP view of the chest was performed. FINDINGS: No pneumothorax, consolidative infiltrates, or pulmonary edema. There is mild central peribronchial thickening. The heart is borderline enlarged. There is mild upper thoracic dextroscoliosis. IMPRESSION: Mild reactive airways disease. The lungs are otherwise clear. ATED BY: LAZ RUFF MD DICTATED DATE/TIME: 03/20/25 103 SIGNED BY: LAZ RUFF MD SIGNED DATE/TIME: 03/20/251033 CC: Time of 1ST Reevaluation: 10:30 Reevaluation 1ST: Unchanged Patient Education/Counseling: Diagnosis, Treatment Family Education/Counseling: No Family Present SEPSIS Sepsis Screen Date sepsis recognized/suspect: Mar 20, 2025 Time Sepsis recognized/suspect: 0942 Recent Procedure: No On Antibiotic Therapy: No Respiratory Rate >20: No Heart Rate >90: No Temp<36 C (96.8 F) or >38.3 C: No SBP <90 or MAP <65 mmHG: No New Acute Mental Status Change: No Is the patient on CPAP, BIPAP,: No Physician Orders Troponin-I Hs (03/20/25 12:44) Electrocardigram (03/20/25 12:44) Chest Portable (03/20/25 10:15) Albuterol Medneb (Ventolin Medneb) (03/20/25 13:45) Ipratropium Medneb (Atrovent Medneb) (03/20/25 13:45) Vital Signs Date Time Temp Pulse Resp B/P (MAP) Pulse Ox O2 Delivery O2 Flow Rate FiO2 03/20/25 12:50 76 03/20/25 11:09 98.2 95 18 108/64 (79) 94 98.2 03/20/25 10:50 80 03/20/25 09:50 74 03/20/25 09:49 98.4 81 16 121/57 (78) 99 98.4 Laboratory Tests Test 03/20/25 09:59 White Blood Count 6.6 10^3/uL (4.4-10.8) Departure 1 Departure Time of Disposition: 13:33 (Patient presented with chest pain that was abdullahi rning for possible STEMI, ACS, PE, Pneumonia, Muscle Strain, COPD, Dissection. Data: 1. I ordered and reviewed the result of at least 3 labs including a CBC, BMP, and Troponin. 2. I independently interpreted the following tests: EKG which shows normal sinus rhythm and Chest X-ray which shows a benign chest.Risk:This patient presented with a high risk of morbidity due to further diagnostic testing or treatment and may suffer from an acute cardiac or respiratory disorder. After review of all the data patient is unlikely to have a pe , dissection, and is low risk for acs. Patient is stable at this time.Workup so far is benign and patient will be discharged with outpatient followup. ) Impression: Primary Impression: Acute chest pain Disposition: HOME / SELF CARE / HOMELESS Condition: Stable Additional Instructions: You presented today with chest pain. Your workup today was benign including labs, troponin, EKG, chest x-ray. Your pain may be from musculoskeletal strain, acid reflux, anxiety, or many other factors. It is important to follow up with your regular doctor within 1 week. If your symptoms worsen or you have any other concerns please return to the emergency room. Discharged With: Self Critical Care Note Critical Care Time?: No Stability Stability form required: No Heart Score Heart Score: Heart Score Response (Comments) Value History N/A 0 EKG N/A 0 Age N/A 0 Risk Factors N/A 0 Troponin N/A 0 Total 0 I personally scribed for GREGOR HINES MD ([email or web address]) on 03/20/25 at 10:26. Electr onically submitted by Zoie Madrid ([email or web address]). I personally scribed for GREGOR HINES MD ([email or web address]) on 03/20/25 at 11:02. Electronically submitted by Zoie Madrid ([email or web address] I personally scribed for GREGOR HINES MD ([email or web address]) on 03/20/25 at 11:02. Electronically submitted by Zoie Madrid ([email or web address]). GREGOR HINES MD Mar 20, 2025 10:26
--- NOTE | 2025-03-20 10:37 | DVH ---
EXAM: XY CHEST PORTABLE HISTORY: chest pain COMPARISON: None TECHNIQUE: Portable AP view of the chest was performed. FINDINGS: No pneumothorax, consolidative infiltrates, or pulmonary edema. There is mild central peribronchial t hickening. The heart is borderline enlarged. There is mild upper thoracic dextroscoliosis. IMPRESSION: Mild reactive airways disease. The lungs are otherwise clear.
[2025-03-20 10:53] LABS: Chloride 103 mmol/L (98-107); Potassium 4.1 mmol/L (3.5-5.1); Sodium 138 mmol/L (136-145)
[2025-03-20 10:54] LABS: Anion Gap 7 (5-15); Calcium 10.2 mg/dL (8.7-10.4); Carbon Dioxide 28 mmol/L (20-31)
[2025-03-20 10:59] LABS: BUN/Creatinine Ratio 16.9 (10.0-20.0); Blood Urea Nitrogen 12 mg/dL (9-23); Glucose 87 mg/dL (74-106)
[2025-03-20 11:00] LABS: Hematocrit 44.2 % (36.0-46.0); Hemoglobin 14.6 g/dL (12.2-16.2); Mean Corpuscular Hemoglobin 26.2 pg (28.0-32.0); Mean Corpuscular Volume 79.5 fL (80.0-100.0); Nucleated Red Blood Cells % 0.1 %
--- NOTE | 2025-03-20 11:54 | ECG ---
[facility] Test Date: 2025-03-20 Test Time: 10:50:10 Pat Name: RAHUL JOE Department: ER Room: Gender: F Cannoneer: FRANCES : 1985 Requested By: GREGOR HINES Order Number: [id number] Reading MD: Measurements Intervals [place] Rate: 80 P: 72 VA: 145 QRS: 80 QRSD: 94 T: 78 QT: 375 QTc: 433 Interpretive Statements Sinus rhythm Please click the below link to view image of tracing.
[2025-03-20] MEDS: IPRATROPIUM BROM 0.5 MG/2.5ML INH SOL NEB ONE (14:02)
[2025-03-20] MEDS: ALBUTEROL SULF 2.5 MG/0.5ML(0.5%) NEB SOLN ONE (14:03)
[2025-03-20] MEDS: IPRATROPIUM BROM 0.5 MG/2.5ML INH SOL ONE (14:03)
[2025-03-20] MEDS: ALBUTEROL SULF 2.5 MG/0.5ML(0.5%) NEB SOLN NEB ONE (14:03)
[2025-03-20 14:34] VITALS: BP 108/69; PULSE 86; RESP 16; TEMP 98.7; O2SAT 99
--- NOTE | 2025-03-21 10:01 | ECG ---
[facility] Test Date: 2025-03-20 Test Time: 12:50:19 Pat Name: RAHUL JOE Department: ER Room: Gender: F Silverlight Developer: FRANCES : 1985 Requested By: GREGOR HINES Order Number: [id number] Reading MD: Measurements Intervals [place] Rate: 76 P: 61 NE: 148 QRS: 80 QRSD: 91 T: 73 QT: 378 QTc: 426 Interpretive Statements Sinus rhythm RSR' in V1 or V2, right VCD or RVH Please click the below link to view image of tracing.
== END 2025-03-20 14:38 | disposition home or self-care (01) ==
LOC: ER 09:41 → MERGE 09:41 → ER 14:38
DX: R07.89 Other chest pain (principal); J45.909 Unspecified asthma, uncomplicated; I10 Essential (primary) hypertension; M35.00 Sjogren syndrome, unspecified
CPT/HCPCS: 36415; 71045; 80048; 84484; 85025; 93005

== ENCOUNTER 2025-05-05 12:43 | Inpatient (IN) | payer MEDICAID ==
[~2025-05-05] VITALS: Ht 167.6 cm; Wt 73.4 kg
--- NOTE | 2025-05-05 13:31 | ED.PDOC ---
Musculoskeletal HPI Comments THIS IS A 40 YEAR-OLD FEMALE, WITH A PMHX OF SVT, LEAKY HEART VALVE, AND LUPUS, WHO PRESENTS TO THE ED WITH A C/C OF LEFT CALF PAIN WITH ASSOCIATED SWELLING OF 1000 THIS MORNING. PATIENT DENIES ANY INJURY OR TRAUMA TO THE AREA. PATIENT ADDITIONALLY REPORTS A RED ANNIA TO HER LEFT BIG TOE. WALKING AND STANDING INCREA SES LEFT LOWER LEG PAIN. PATIENT HAS A FURTHER COMPLAINTS AT THIS TIME AND OTHERWISE DENIES FURTHER ASSOCIATED SYMPTOMS OF FEVER, CHILLS, LOSS OF CONSCIOUSNESS, NAUSEA, VOMITING, SOB OR CHEST PAIN. PATIENT IS ALERT, ORIENTED X 4, AND HAS STEADY GAIT. Chief Complaint: Lower Extremity Time Seen by MD: 13:22 Primary Care Provider: GABRIELA Reviewed Notes: Nurses Notes, Medications, Allergies Allergies: Coded Allergies: Penicillins (Verified Allergy, Severe, 04/07/19) Sulfa Antibiotics (Verified Allergy, Unknown, 07/27/23) Home Meds Active Scripts Promethazine-Dm (Promethazine Dm 6.25-15 mg/5Ml) 1 Concetta Concetta, 5 ML PO TID, #150 ML Prov:CHRIS MARX 09/01/24 Azithromycin (ZITHROMAX TABLET) 250 Mg Tb, 250 MG PO DAILY, #6 TAB Prov:CHRIS MARX 09/01/24 Alprazolam (Xanax) 0.25 Mg Tb, 1 TAB PO Q8HP PRN for 5 Days, #15 TAB Prov:STACIA CABRAL CABLE DISPATCHER 01/30/23 Metoprolol Tartrate (Lopressor) 25 Mg Tb, 25 MG PO BID for 60 Days, #120 TAB Prov:STACIA CABRAL CABLE DISPATCHER 01/30/23 Atorvastatin Calcium (ATORVASTATIN CALCIUM) 20 Mg Tab, 20 MG PO HS for 60 Days, #60 TAB Prov:STACIA CABRAL CABLE DISPATCHER 01/30/23 Reported Medications Beclomethasone Dipropionate (Qvar Redihaler) 40 Mcg/Act Aer, 40 MCG IN, AER 01/29/23 Information Source: Patient Mode of Arrival: Ambulatory Location: Left Extremity Location: Calf Timing: Hours Prehospital treatment: None Severity: Moderate Bear Weight: Fully Pain: Moderate Hand Dominance: Right Circumstances: Spontaneous Onset of Symptoms: Spontaneous Symptoms: Swelling, Pain DVT Risk Factors: NONE Last Tetanus: UTD Associated signs and symptoms: Leg pain Past Medical History PAST MEDICAL HISTORY: Anxiety, Cancer, Depression, High Lipids Past Medical History (Other): LUPUS, SVT Surgical History: Hysterectomy, Tubal Ligation 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 Family History Family History: Reviewed,noncontributory to illness, Family hx of heart elizabeth Social History Smoker: Non-Smoker Alcohol: Denies ETOH Use Drugs: Denies Drug Use Lives In: Home Constitutional: reports: others (ANXIOUS ); denies: chills, diaphoresis, fatigue, fever, malaise, sweats, weakness EENTM: denies: blurred vision, double vision, ear bleeding, ear discharge, ear drainage, ear pain, ear ringing, eye pain, eye redness, hearing loss, mouth pain, mouth swelling, nasal discharge, nose bleeding, nose congestion, nose pain, photophobia, tearing, throat pain, throat swelling, voice changes, others Respiratory: denies: cough, hemoptysis, orthopnea, SOB at rest, shortness of breath, SOB with excertion, stridor, wheezing, others Cardiovascular: denies: chest pain, dizzy spells, diaphoresis, Dyspnea on exertion, edema, irregular heart beat, left arm pain, lightheadedness, palpitations, PND, syncope, others Gastrointestinal: denies: abdomen distended, abdominal pain, blood streaked bowels, constipated, diarrhea, dysphagia, difficulty swallowing, hematemesis, melena, nausea, poor appetite, poor fluid intake, rectal bleeding, rectal pain, vomiting, others Genitourinary: denies: abnormal vagina bleeding, burning, dyspareunia, dysuria, flank pain, frequency, hematuria, incontinence, pain, , vagina discharge, urgency, others Neurological: denies: dizziness, fainting, headache, left sided numbness, left sided weakness, numbness, paresthesia, pre-existing deficit, right sided numbness, right sided weakness, seizure, speech problems, tingling, tremors, weakness, others Musculoskeletal: reports: muscle pain (LEFT LOWER LEG ), others (L CALF PAIN WITH SWELLING ); denies: back pain, gout, joint pain, joint swelling, muscle stiffness, neck pain Integumetry: denies: bruises, change in color, change in hair/nails, dryness, laceration, lesions, lumps, rash, wounds, others Allergic/Immunocompromised: denies: Difficulty Healing, Frequent Infections, Hives, Itching, others Hematologic/Lymphatic: denies: anemia, blood clots, easy bleeding, easy bruising, swollen glands, others Endocrine: denies: excessive hunger, excessive sweating, excessive thirst, excessive urination, flushing, intolerance to cold, intolerance to heat, unexplained weight gain, unexplained weight loss, others Psychiatric: reports: anxiety; denies: bipolar disorder, depression, hopeless, panic disorder, schizophrenia, sleepless, suicidal, others All Other Systems: Reviewed and Negative Physical Exam General Appearance: Mild Distress, Normal, Other (ANXIOUS ) HEENT: Normal ENT Inspection, PERRL/EOMI, Pharynx Normal, TMs Normal Neck: Full Range of Motion, Non-Tender, Normal, Normal Inspection Respiratory: Chest Non-Tender, Lungs Clear, No Accessory Muscle Use, No Respiratory Distress, Normal Breath Sounds Cardiovascular: No Edema, No JVD, No Murmur, No Gallop, Normal Peripheral Pulses, Regular Rate/Rhythm Breast Exam: Deferred Gastrointestinal: No Organomegaly, Non Tender, No Pulsatile Mass, Normal Bowel Sounds, Soft Genitalia: Deferred Pelvic: Deferred Rectal: Deferred Extremities: Calf tenderness, Leg edema, Normal capillary refill, Normal range of motion, No pedal edema, Swelling (TENDERNESS AND MILD SWELLING ON LEFT LOWER LEG, NO REDNESS AND SKIN RASH. ), Tender (WITH MILD SWELLING ON LEFT POSTERIOR LOWER LEG, NO ERYTHEMA AND SKIN RASH. ) Musculoskeletal : Apperance: Normal Neurologic: Alert, brazer assembler II-XII nml as Tested, No Motor Deficits, Normal Affect, Normal Mood, No Sensory Deficits Cerebellar Function: Normal Reflexes: Normal Skin: Dry, Normal Color, Warm Peripheral Pulses: 2+ carotid (R), 2+ carotid (L), 2+ dorsalis pedis (R), 2+ dorsalis pedis (L) Lymphatic: No Adenopathy Was a procedure done? Was a procedure done?: No Differential Diagnosis EXT Differential Diagnosis: Deep Vein Thrombosis, Fracture, Sprain, Contusion, Bursitis X-Ray, Labs, Meds, VS Vital Signs Date Time Temp Pulse Resp B/P (MAP) Pulse Ox O2 Delivery O2 Flow Rate FiO2 05/05/25 14:44 88 16 98 Room Air 05/05/25 14:44 98.1 88 16 118/77 (91) 98 98.1 05/05/25 12:45 98.5 94 18 114/82 97 98.5 Lab Test 05/05/25 14:35 Range/Units White Blood Count 6.7 4.4-10.8 10^3/uL Red Blood Count 5.19 4.0-5.20 10^6/uL Hemoglobin 13.7 12.2-16.2 g/dL Hematocrit 41.4 36.0-46.0 % Mean Corpuscular Volume 79.9 L 80.0-100.0 fL Mean Corpuscular Hemoglobin 26.4 L 28.0-32.0 pg Mean Corpuscular Hemoglobin Concent 33.1 32.0-36.0 g/dL Red Cell Distribution Width 13.6 11.8-14.3 % Platelet Count 221 140-450 10^3/uL Mean Platelet Volume 9.0 6.9-10.8 fL Neutrophils (%) (Auto) 72.9 37.0-80.0 % Lymphocytes (%) (Auto) 16.3 10.0-50.0 % Monocytes (%) (Auto) 9.3 0.0-12.0 % Eosinophils (%) (Auto) 1.0 0.0-7.0 % Basophils (%) (Auto) 0.5 0.0-2.0 % Neutrophils # (Auto) 4.9 1.6-8.6 10 ^3/uL Lymphocytes # (Auto) 1.1 0.4-5.4 10 ^3/uL Monocytes # (Auto) 0.6 0-1.3 10 ^3/uL Eosinophils # (Auto) 0.1 0-0.8 10 ^3/uL Basophils # (Auto) 0 0-0.2 10 ^3/uL Nucleated Red Blood Cells 0.1 % Prothrombin Time 10.4 9.3-11.8 sec Prothrombin Time INR 0.98 0.9-1.15 Sodium Level 141 136-145 mmol/L Potassium Level 4.0 3.5-5.1 mmol/L Chloride Level 104 98-107 mmol/L Carbon Dioxide Level 28 20-31 mmol/L Anion Gap 9 5-15 Blood Urea Nitrogen 10 9-23 mg/dL Creatinine 0.65 0.550-1.02 mg/dL Glomerular Filtration Rate Calc 113 >90 mL/min BUN/Creatinine Ratio 15.4 10.0-20.0 Serum Glucose 74 74-106 mg/dL Calcium Level 9.5 8.7-10.4 mg/dL Current Medications Medications (Trade) Dose Ordered Sig/Jose Route Start Time Stop Time Status Last Admin Enoxaparin Sodium (Lovenox) 70 mg ONCE ONCE SC 05/05/25 14:30 05/05/25 14:31 DC 05/05/25 14:44 PATIENT: RAHUL CAMARENACCT: [id number]: [id number] : 1985 LOC: ER ROOM / BED: / AGE / SEX: 40 / F ADM STATUS: REG ER SERVICE [id number] ORDERING PHYSICIAN: CHRIS MARX PROCEDURE(s): LLDVT - LT Lower DVT REASON: LEFT LOWER LEG PAIN ORDER NUMBER(s): [id number], ACCESSION NUMBER(s): [id number] Left lower extremity venous duplex Clinical History: LEFT LOWER LEG PAIN Comparison: None Findings: Duplex Doppler evaluation of the deep venous system of the left lower extremity from the common femoral vein to the popliteal vein including color Doppler and spectral/pulsed waveform analysis was performed. The common femoral vein demonstrates appropriate compressibility and waveform variability. There is compressibility/patency of the great saphenous vein at the proximal thigh. Loss of compressibility of the mid superficial femoral vein. The deep femoral vein demonstrates appropriate compressibility and waveform variability. The popliteal vein demonstrates appropriate compressibility and waveform variability. There is normal compressibility at the tibioperoneal trunk. Impression: Left lower extremity DVT. Critical Result: DVT Findings discussed with MARY Blount, at 05/05/2025 02:28 PM, and acknowledged receipt and understanding of the findings. .. If clinical concern/symptoms persist or worsen, short-interval follow-up study is suggested. ATED BY: FRANKLIN VELASQUEZ MD DICTATED DATE/TIME: 05/05/251428 SIGNED BY: FRANKLIN VELASQUEZ MD SIGNED DATE/TIME: 05/05/251428 CC: X-Ray, Labs, Meds, VS Comment EXTERNAL MEDICAL RECORDS REVIEWED: [NONE] INDEPENDENT HISTORIANS: [NONE] SOCIAL DETERMINANTS OF HEALTH: [NONE] LABS ORDERED:CBC, BMP AND INR/PT/PTT REVIEWED AND INTERPRETED RESULTS: NORMAL IMAGING ORDERED: LEFT LOWER DVT TREATMENTS ORDERED: LOVENOX 70MG SQ PROCEDURES PERFORMED: NONE CRITICAL CARE TIME: NONE I HAVE DISCUSSED THE PATIENT WITH THE ATTENDING PHYSICIAN, DR. PEREA, AND HE AGREES WITH THE PATIENT'S PLAN OF CARE AND DISPOSITION. BASED ON HISTORY OF PRESENT ILLNESS, PHYSICAL EXAM, AND LEFT LOWER LEG DVT US, POSITIVE DVT. PATIENT WILL BE ADMITTED TO HOSPITAL FOR FURTHER EVALUATION AND TREATMENT. Images Reviewed?: Images reviewed and evaluated by me Time of 1ST Reevaluation: 16:00 Reevaluation 1ST: Unchanged Patient Education/Counseling: Diagnosis, Treatment Family Education/Counseling: Diagnosis, Treatment Departure 1 Departure Time of Disposition: 16:03 Impression: Primary Impression: Acute deep vein thrombosis (DVT) of left lower extremity Qualified Codes: I82.412 - Acute embolism and thrombosis of left femoral vein Disposition: ADMITTED INPATIENT Condition: Serious Critical Care Note Critical Care Time?: No Stability Stability form required: Yes Unstable for transfer: Requires medication, ED Physician Assesment, Possible rapid decline Heart Score Heart Score: Heart Score Response (Comments) Value History N/A 0 EKG N/A 0 Age N/A 0 Risk Factors N/A 0 Troponin N/A 0 Total 0 I personally scribed for SHI MARXA PA ([email or web address]) on 05/05/25 at 13:31. Electronically submitted by Elis Westfall ([employer]). I personally scribed for SHI MARXA PA ([email or web address]) on 05/05/25 at 13:31. Electronically submitted by Elis Westfall ([employer]). I personally scribed for ARASELIYINXIA PA ([email or web address]) on 05/05/25 at 14:20. Electronically submitted by Elis Westfall ([employer]). I personally scribed for ARASELIYINXIA PA ([email or web address]) on 05/05/25 at 14:21. Electronically submitted by Elis Westfall ([employer]). SHI MARXA PA May 05, 2025 13:31
--- NOTE | 2025-05-05 14:31 | DVH ---
Left lower extremity venous duplex Clinical History: LEFT LOWER LEG PAIN Comparison: None Findings: Duplex Doppler evaluation of the deep venous system of the left lower extremity from the common femor al vein to the popliteal vein including color Doppler and spectral/pulsed waveform analysis was perfo rmed. The common femoral vein demonstrates appropriate compressibility and waveform variability. There is compressibility/patency of the great saphenous vein at the proximal thigh. Loss of compressibility of the mid superficial femoral vein. The deep femoral vein demonstrates appropriate compressibility and waveform variability. The popliteal vein demonstrates appropriate compressibility and waveform variability. There is normal compressibility at the tibioperoneal trunk. Impression: Left lower extremity DVT. Critical Result: DVT Findings discussed with MARY Blount, at 05/05/2025 02:28 PM, and acknowledged receipt and understanding of the findings. .. If clinical concern/symptoms persist or worsen, short-interval follow-up study is suggested.
[2025-05-05] MEDS: ENOXAPARIN SOD 80 MG/0.8ML SYRINGE SC ONE (14:44)
[2025-05-05 14:54] LABS: Hematocrit 41.4 % (36.0-46.0); Hemoglobin 13.7 g/dL (12.2-16.2); Mean Corpuscular Hemoglobin 26.4 pg (28.0-32.0); Mean Corpuscular Volume 79.9 fL (80.0-100.0); Nucleated Red Blood Cells % 0.1 %
[2025-05-05 14:58] LABS: Chloride 104 mmol/L (98-107); Potassium 4.0 mmol/L (3.5-5.1); Sodium 141 mmol/L (136-145)
[2025-05-05 14:59] LABS: Anion Gap 9 (5-15); Carbon Dioxide 28 mmol/L (20-31)
[2025-05-05 15:00] LABS: Calcium 9.5 mg/dL (8.7-10.4)
[2025-05-05 15:04] LABS: Glucose 74 mg/dL (74-106)
[2025-05-05 15:05] LABS: BUN/Creatinine Ratio 15.4 (10.0-20.0); Blood Urea Nitrogen 10 mg/dL (9-23)
[2025-05-05 15:08] LABS: INR 0.98 (0.9-1.15); Prothrombin Time 10.4 sec (9.3-11.8)
--- NOTE | 2025-05-05 18:14 | DVHHP2 ---
Admitting Diagnosis: Leg pain History of Present Illness THIS IS A 40 YEAR-OLD FEMALE, WITH A PMHX OF SVT, LEAKY HEART VALVE, AND LUPUS, WHO PRESENTS TO THE ED WITH A C/C OF LEFT CALF PAIN WITH ASSOCIATED SWELLING OF 1000 THIS MORNING. PATIENT DENIES ANY INJURY OR TRAUMA TO THE AREA. PATIENT ADDITIONALLY REPORTS A RED ANNIA TO HER LEFT BIG TOE. WALKING AND STANDING INCREASES LEFT LOWER LEG PAIN. PATIENT HAS A FURTHER COMPLAINTS AT THIS TIME AND OTHERWISE DENIES FURTHER ASSOCIATED SYMPTOMS OF FEVER, CHILLS, LOSS OF CONSCIOUSNESS, NAUSEA, VOMITING, SOB OR CHEST PAIN. PATIENT IS ALERT, ORIENTED X 4, AND HAS STEADY GAIT. 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 Family History: Reviewed,noncontributory to illness, Family hx of heart elizabeth Social History Smoker: Non-Smoker Alcohol: Denies ETOH Use Drugs: Denies Drug Use Lives In: Home Allergies: Coded Allergies: Penicillins (Verified Allergy, Severe, 04/07/19) Sulfa Antibiotics (Verified Allergy, Unknown, 07/27/23) Home Meds Active Scripts Promethazine-Dm (Promethazine Dm 6.25-15 mg/5Ml) 1 Concetta Concetta, 5 ML PO TID, #150 ML Prov:CHRIS MARX 09/01/24 Azithromycin (ZITHROMAX TABLET) 250 Mg Tb, 250 MG PO DAILY, #6 TAB Prov:CHRIS MARX 09/01/24 Alprazolam (Xanax) 0.25 Mg Tb, 1 TAB PO Q8HP PRN for 5 Days, #15 TAB Prov:STACIA CABRAL OUTPATIENT SERVICES DIRECTOR 01/30/23 Metoprolol Tartrate (Lopressor) 25 Mg Tb, 25 MG PO BID for 60 Days, #120 TAB Prov:STACIA CABRAL OUTPATIENT SERVICES DIRECTOR 01/30/23 Atorvastatin Calcium (ATORVASTATIN CALCIUM) 20 Mg Tab, 20 MG PO HS for 60 Days, #60 TAB Prov:STACIA CABRAL OUTPATIENT SERVICES DIRECTOR 01/30/23 Reported Medications Fluticasone Propionate (Nasal) (Flonase Allergy Relief) 50 Mcg/Act Spr, 50 MCG NA, SPRAY 05/06/25 Ergocalciferol (VITAMIN D2) 2,000 Unit Tab, 2000 UNIT PO, TAB 05/06/25 Metoprolol Succinate (Metoprolol Succinate Er) 25 Mg Tab, 25 MG PO DAILY for 30 Days, MG 05/06/25 Atorvastatin Calcium (Lipitor) 10 Mg Tab, 1 TAB PO BID, #90 TAB 1 Refill 05/06/25 Linaclotide Base (LINZESS) 290 Mcg Cap, 290 MCG PO DAILY, CAP 05/06/25 Digoxin (Digoxin) 125 Mcg Tab, 125 MCG PO MWF, TAB 05/06/25 Azathioprine (Azathioprine) 50 Mg Tab, 100 MG PO BID 05/06/25 Beclomethasone Dipropionate (Qvar Redihaler) 40 Mcg/Act Aer, 40 MCG IN, AER 01/29/23 Current Medications Current Medications Medications (Trade) Dose Ordered Sig/Jose Route PRN Reason Start Time Stop Time Status Last Admin Heparin Sodium/ Dextrose 250 ml @ 13 mls/hr [id number] IV 05/06/25 03:00 05/06/25 04:03 Sodium Chloride (Saline Lock Ns) 10 ml Q8HR IV 05/05/25 22:00 05/06/25 13:34 Atorvastatin Calcium (Lipitor) 20 mg HS PO 05/05/25 22:00 05/05/25 22:38 Metoprolol Tartrate (Lopressor Tablet) 25 mg BID PO 05/05/25 22:00 05/06/25 09:17 Promethazine HCl/ Dextromethorphan (Phenergan-Dm) 5 ml TID PO 05/05/25 22:00 05/05/25 22:38 Azathioprine (Imuran Tablet) 100 mg BID PO 05/06/25 22:00 Digoxin (Lanoxin Tablet) 0.125 mg MWF PO 05/08/25 10:00 Fluticasone Propionate (Flonase [place]) 50 mcg Q12HR EACHNOSTRI 05/06/25 22:00 Vital Signs Vital Signs Date Time Temp Pulse Resp B/P (MAP) Pulse Ox O2 Delivery O2 Flow Rate FiO2 05/06/25 16:59 98.3 82 18 110/55 (73) 97 98.3 05/05/25 23:40 Room Air* 0 21 SEPSIS Sepsis Screen Date sepsis recognized/suspect: May 05, 2025 Time Sepsis recognized/suspect: 8 Recent Procedure: No On Antibiotic Therapy: No Respiratory Rate >20: No Heart Rate >90: Yes Temp<36 C (96.8 F) or >38.3 C: No SBP <90 or MAP <65 mmHG: No New Acute Mental Status Change: No Is the patient on CPAP, BIPAP,: No Physician Orders Lt Lower Dvt (05/05/25 13:18) Heplock Iv (05/05/25 ) Platelet Monitoring (05/05/25 18:03) Vte Protocol Initiated (05/05/25 18:03) Heparin Per Standardized Proce (05/05/25 18:03) Discontinue All Im Injections (05/05/25 18:03) Heparin Drip/D5w 100units/Ml (05/06/25 03:00) Admit (05/05/25 19:55) Code Status (05/05/25 19:55) Vital Signs .PER UNIT PROTOCOL (05/05/25 19:55) Review Orders With Adm.Md (05/05/25 19:55) Encourage Activity As Tolerate (05/05/25 19:55) Regular Diet (05/06/25 Breakfast) Sodium Chloride Lock (Saline Lock Ns) (05/05/25 22:00) Docusate Sodium Capsule (Colace Capsule) (05/05/25 20:00) Acetaminophen Tablet (Tylenol Tablet) (05/05/25 20:00) Notify Md Of Changes From Base (05/05/25 19:55) Advance Directive (05/05/25 19:55) Patient Condition (05/05/25 19:55) Allergies (05/05/25 19:55) Hydrocodone-Acet 5/325mg Tab ([place] 5/32 (05/05/25 20:00) Hydromorphone Injection (Dilaudid Inject (05/05/25 20:00) Ondansetron Hcl (Zofran) (05/05/25 20:00) Complete Blood Count (05/07/25 05:00) Complete Blood Count (05/08/25 05:00) Complete Blood Count (05/09/25 05:00) Complete Blood Count (05/10/25 05:00) Comprehensive Metabolic Panel (05/07/25 05:00) Comprehensive Metabolic Panel (05/08/25 05:00) Comprehensive Metabolic Panel (05/09/25 05:00) Comprehensive Metabolic Panel (05/10/25 05:00) Atorvastatin (Lipitor) (05/05/25 22:00) Metoprolol Tartrate Tablet (Lopressor Ta (05/05/25 22:00) Promethazine-Dm (Phenergan-Dm) (05/05/25 22:00) Heparin Per Pharmacy Protocol (05/05/25 22:17) * Cardiology Consult (05/06/25 10:25) Heparin Per Pharmacy Protocol (05/06/25 12:43) * Rheumatology Consult (05/06/25 ) Electrocardigram (05/06/25 14:18) Electrocardigram (05/06/25 15:18) Electrocardigram (05/06/25 17:18) Echo 2d Mode Cardiac Dop (05/06/25 14:18) Ct Angio Chest Contrast (05/06/25 14:18) Azathioprine Tablet (Imuran Tablet) (05/06/25 22:00) Digoxin Tablet (Lanoxin Tablet) (05/08/25 10:00) Fluticasone Nasal [place] (Flonase [place]) (05/06/25 22:00) PTPTT (05/06/25 23:00) Heparin Per Pharmacy Protocol (05/06/25 17:59) Vital Signs Date Time Temp Pulse Resp B/P (MAP) Pulse Ox O2 Delivery O2 Flow Rate FiO2 05/06/25 16:59 98.3 82 18 110/55 (73) 97 98.3 05/06/25 13:00 98.8 85 17 109/65 (80) 96 98.8 05/06/25 10:17 85 109/65 05/06/25 09:17 86 106/53 05/06/25 08:23 98.7 86 17 106/53 (70) 93 98.7 05/06/25 04:51 98.1 87 15 112/63 (79) 95 98.1 05/06/25 04:37 98.1 87 15 112/63 (79) 95 98.1 05/06/25 03:20 97.9 99 17 125/65 (85) 98 97.9 05/05/25 23:43 98.3 99 16 110/54 (72) 96 98.3 05/05/25 23:40 Room Air* 0 21 05/05/25 17:50 98.2 92 18 130/77 (94) 98 98.2 05/05/25 14:44 88 16 98 Room Air 05/05/25 14:44 98.1 88 16 118/77 (91) 98 98.1 05/05/25 12:45 98.5 94 18 114/82 97 98.5 Laboratory Tests Test 05/05/25 14:35 05/05/25 18:33 05/06/25 03:08 White Blood Count 6.7 10^3/uL (4.4-10.8) 7.1 10^3/uL (4.4-10.8) 5.6 10^3/uL (4.4-10.8) Results Labs Test 05/06/25 17:04 05/06/25 03:08 Range/Units Prothrombin Time 10.6 9.3-11.8 sec Prothrombin Time INR 1.00 0.9-1.15 Activated Partial Thromboplast Time 73.3 *H 24.5-34.5 SEC Troponin I High Sensitivity 9 </=34 ng/L Thyroid Stimulating Hormone (TSH) 0.95 0.55-4.78 uIU/mL White Blood Count 5.6 4.4-10.8 10^3/uL Red Blood Count 5.01 4.0-5.20 10^6/uL Hemoglobin 13.4 12.2-16.2 g/dL Hematocrit 40.2 36.0-46.0 % Mean Corpuscular Volume 80.2 80.0-100.0 fL Mean Corpuscular Hemoglobin 26.7 L 28.0-32.0 pg Mean Corpuscular Hemoglobin Concent 33.3 32.0-36.0 g/dL Red Cell Distribution Width 13.5 11.8-14.3 % Platelet Count 213 140-450 10^3/uL Mean Platelet Volume 9.3 6.9-10.8 fL Neutrophils (%) (Auto) 67.8 37.0-80.0 % Lymphocytes (%) (Auto) 20.0 10.0-50.0 % Monocytes (%) (Auto) 10.1 0.0-12.0 % Eosinophils (%) (Auto) 1.3 0.0-7.0 % Basophils (%) (Auto) 0.8 0.0-2.0 % Neutrophils # (Auto) 3.8 1.6-8.6 10 ^3/uL Lymphocytes # (Auto) 1.1 0.4-5.4 10 ^3/uL Monocytes # (Auto) 0.6 0-1.3 10 ^3/uL Eosinophils # (Auto) 0.1 0-0.8 10 ^3/uL Basophils # (Auto) 0 0-0.2 10 ^3/uL Nucleated Red Blood Cells 0.1 % Sodium Level 141 136-145 mmol/L Potassium Level 3.9 3.5-5.1 mmol/L Chloride Level 104 98-107 mmol/L Carbon Dioxide Level 27 20-31 mmol/L Anion Gap 10 5-15 Blood Urea Nitrogen 11 9-23 mg/dL Creatinine 0.69 0.550-1.02 mg/dL Glomerular Filtration Rate Calc 111 >90 mL/min BUN/Creatinine Ratio 15.9 10.0-20.0 Serum Glucose 83 74-106 mg/dL Calcium Level 9.3 8.7-10.4 mg/dL Total Bilirubin 0.3 0.2-1.0 mg/dL Aspartate Amino Transferase (AST) 18 13-40 U/L Alanine Aminotransferase (ALT) 19 7-40 U/L Alkaline Phosphatase 64 46-116 U/L B-Type Natriuretic Peptide 2.38 0-100 pg/mL Total Protein 7.8 5.7-8.2 g/dL Albumin 4.6 3.2-4.8 g/dL Primary Diagnosis Left lower leg DVT Plan Left lower extremity pain Ultrasound shows left lower extremity DVT Start patient on heparin drip for left lower extremity DVT Pain control Antiemetic Consider Coumadin for possible history of antiphospholipid syndrome Full code Heparin for DVT prophylaxis No GI prophylaxis needed Regular diet Plan discussed with: Patient Problems List: (1) DVT (deep venous thrombosis) Status: Acute Date of Service: May 06, 2025 Billing Provider: ERICA GORMAN MD Common Visit Codes: [id number] INP/OBS CARE (HIGH) ERICA GORMAN MD May 05, 2025 18:14
[2025-05-05 19:02] LABS: Hematocrit 40.2 % (36.0-46.0); Hemoglobin 13.5 g/dL (12.2-16.2); Mean Corpuscular Hemoglobin 26.8 pg (28.0-32.0); Mean Corpuscular Volume 80.2 fL (80.0-100.0); Nucleated Red Blood Cells % 0.1 %
[2025-05-05 19:21] LABS: INR 0.98 (0.9-1.15); Partial Thromboplastin Time 31.5 SEC (24.5-34.5); Prothrombin Time 10.4 sec (9.3-11.8)
[2025-05-05] MEDS ORDERED: DOCUSATE SOD 100 MG CAP PO PRN (20:00)
[2025-05-05] MEDS ORDERED: HYDROcodone-ACET 5/325MG TAB PO PRN (20:00)
[2025-05-05] MEDS ORDERED: HYDROmorphone HCL 2 MG/ML VL/or syr IV PRN (20:00)
[2025-05-05] MEDS ORDERED: ACETAMINOPHEN 325 MG TAB PO PRN (20:00)
[2025-05-05] MEDS ORDERED: ONDANSETRON HCL 4 MG/2 ML VIAL IV PRN (20:00)
[2025-05-05] MEDS: METOPROLOL TARTRATE 25 MG TAB PO SCH (22:00)
[2025-05-05] MEDS: ATORVASTATIN 20 MG TAB PO SCH (22:38)
[2025-05-05] MEDS: SODIUM CHLOR 0.9% PF (SALINE LOCK) 10ML VIAL/SYR IV SCH (22:38)
[2025-05-05] MEDS: PROMETHAZINE-DM 5 ML ORAL SYRUP PO SCH (22:38)
[2025-05-06] MEDS ORDERED: HEPARIN SODIUM (PORCINE) 5000 UNITS/ML 1ML VIAL IV ONE (02:45)
[2025-05-06 03:41] LABS: Hematocrit 40.2 % (36.0-46.0); Hemoglobin 13.4 g/dL (12.2-16.2); Mean Corpuscular Hemoglobin 26.7 pg (28.0-32.0); Mean Corpuscular Volume 80.2 fL (80.0-100.0); Nucleated Red Blood Cells % 0.1 %
[2025-05-06 03:54] LABS: INR 0.98 (0.9-1.15); Partial Thromboplastin Time 29.2 SEC (24.5-34.5); Prothrombin Time 10.4 sec (9.3-11.8)
[2025-05-06 03:59] LABS: Alanine Aminotransferase 19 U/L (7-40); Albumin 4.6 g/dL (3.2-4.8); Alkaline Phosphatase 64 U/L (46-116); Anion Gap 10 (5-15); BUN/Creatinine Ratio 15.9 (10.0-20.0); Bilirubin, Total 0.3 mg/dL (0.2-1.0); Blood Urea Nitrogen 11 mg/dL (9-23); Calcium 9.3 mg/dL (8.7-10.4); Carbon Dioxide 27 mmol/L (20-31); Chloride 104 mmol/L (98-107); Glucose 83 mg/dL (74-106); Potassium 3.9 mmol/L (3.5-5.1); Sodium 141 mmol/L (136-145); Total Protein 7.8 g/dL (5.7-8.2)
[2025-05-06] MEDS: HEPARIN DRIP/D5W 100UNITS/ML 250 ML IV SCH (04:03)
[2025-05-06 04:37] VITALS: BP 112/63; PULSE 87; RESP 15; TEMP 98.1; O2SAT 95
[2025-05-06 04:51] VITALS: BP 112/63; PULSE 87; RESP 15; TEMP 98.1; O2SAT 95
[2025-05-06 08:23] VITALS: BP 106/53; PULSE 86; RESP 17; TEMP 98.7; O2SAT 93
[2025-05-06] MEDS ORDERED: AZAT50TA43 PO (08:57)
[2025-05-06] MEDS ORDERED: DIGO0.12 PO (08:57)
[2025-05-06] MEDS ORDERED: ERGO2000 PO (09:00)
[2025-05-06] MEDS ORDERED: LINA290C PO (09:00)
[2025-05-06] MEDS ORDERED: ATOR10TA PO (09:00)
[2025-05-06] MEDS ORDERED: METO25TA93 PO (09:00)
[2025-05-06 11:24] LABS: INR 0.98 (0.9-1.15); Partial Thromboplastin Time 66.3 SEC (24.5-34.5); Prothrombin Time 10.4 sec (9.3-11.8)
[2025-05-06 13:00] VITALS: BP 109/65; PULSE 85; RESP 17; TEMP 98.8; O2SAT 96
[2025-05-06] MEDS ORDERED: FLUT1SPR5 (14:31)
[2025-05-06] MEDS ORDERED: IOHEXOL 350 MG/ML 100ML IJ ONE (14:39)
--- NOTE | 2025-05-06 15:35 | DVHINCON2 ---
Date of service: May 06, 2025 History of Present Illness HPI Patient is a 40-year-old female who presented to the hospital with left cough pain and swelling. She is found to have acute DVT. Cardiology is involved for cardiac aspects of care. Patient is known to our practice from outside and before. Does have history of SVT/inappropriate sinus tachycardia for which usually takes every other day of digoxin and also twice daily metoprolol. Few months back she was diagnosed with lupus/Sjogren's disease also for which follows with Rheumatology. Denies chest pains. Denies recent palpitations. Mentions compliance to medications. Did have a travel to out of [facility] but it was around 3 weeks ago. Home Meds Active Scripts Promethazine-Dm (Promethazine Dm 6.25-15 mg/5Ml) 1 Concetta Concetta, 5 ML PO TID, #150 ML Prov:CHRIS MARX 09/01/24 Azithromycin (ZITHROMAX TABLET) 250 Mg Tb, 250 MG PO DAILY, #6 TAB Prov:CHRIS MARX 09/01/24 Alprazolam (Xanax) 0.25 Mg Tb, 1 TAB PO Q8HP PRN for 5 Days, #15 TAB Prov:STACIA CABRAL LOAN SPECIALIST 01/30/23 Metoprolol Tartrate (Lopressor) 25 Mg Tb, 25 MG PO BID for 60 Days, #120 TAB Prov:STACIA CABRAL LOAN SPECIALIST 01/30/23 Atorvastatin Calcium (ATORVASTATIN CALCIUM) 20 Mg Tab, 20 MG PO HS for 60 Days, #60 TAB Prov:STACIA CABRAL LOAN SPECIALIST 01/30/23 Reported Medications Fluticasone Propionate (Nasal) (Flonase Allergy Relief) 50 Mcg/Act Spr, 50 MCG NA, SPRAY 05/06/25 Ergocalciferol (VITAMIN D2) 2,000 Unit Tab, 2000 UNIT PO, TAB 05/06/25 Metoprolol Succinate (Metoprolol Succinate Er) 25 Mg Tab, 25 MG PO DAILY for 30 Days, MG 05/06/25 Atorvastatin Calcium (Lipitor) 10 Mg Tab, 1 TAB PO BID, #90 TAB 1 Refill 05/06/25 Linaclotide Base (LINZESS) 290 Mcg Cap, 290 MCG PO DAILY, CAP 05/06/25 Digoxin (Digoxin) 125 Mcg Tab, 125 MCG PO MWF, TAB 05/06/25 Azathioprine (Azathioprine) 50 Mg Tab, 100 MG PO BID 05/06/25 Beclomethasone Dipropionate (Qvar Redihaler) 40 Mcg/Act Aer, 40 MCG IN, AER 01/29/23 Past Medical History Others Past medical history includes anxiety/depression, asthma, hyperlipidemia, old history of cervical cancer, obstructive sleep apnea on CPAP, short SVTs, inappropriate sinus tachycardia, old history of hysterectomy and tubal ligation. She was diagnosed with lupus/Sjogren's few months back for which follows with Rheumatology. Smoker: No Hx (Negative) Alocohol: None Drugs: None Lives with: With family Review of Systems Constitutional: No symptom reported Ears, Nose, & Throat: No symptom reported Pulmonary/Respiratory: No symptom reported All Other Systems Fourteen point review of system with was performed. Relevant findings as per above and as per HPI. Otherwise negative. H&P Exam Vital Signs Vital Signs Date Time Temp Pulse Resp B/P (MAP) Pulse Ox O2 Delivery O2 Flow Rate FiO2 05/06/25 13:00 98.8 85 17 109/65 (80) 96 98.8 05/05/25 23:40 Room Air* 0 21 General Appeara: Well developed Head Exam: Normal inspection Neck Exam: Normal inspection Eye Exam: bilateral eye PERRL Nasal Exam: Normal inspection Pulmonary/Respiratory: Normal inspection Cardiovascular/Chest: Normal inspection, Regular rate Peripheral Pulses: 2+ carotid (R), 2+ carotid (L), 2+ femoral (R), 2+ femoral (L), 2+ dorsalis pedis (R), 2+ dorsalis pedis (L), 2+ Radial (R), 2+ Radial (L) Abdominal Exam: Normal bowel sounds, Soft, No hepatospenomegaly Neuro/Mental St: Alert, Oriented Appearance: Appropriate appearance Eye contact/ Speech: Cooperative Labs/Xrays Labs Test 05/06/25 10:44 05/06/25 03:08 Range/Units Prothrombin Time 10.4 9.3-11.8 sec Prothrombin Time INR 0.98 0.9-1.15 Activated Partial Thromboplast Time 66.3 H 24.5-34.5 SEC White Blood Count 5.6 4.4-10.8 10^3/uL Red Blood Count 5.01 4.0-5.20 10^6/uL Hemoglobin 13.4 12.2-16.2 g/dL Hematocrit 40.2 36.0-46.0 % Mean Corpuscular Volume 80.2 80.0-100.0 fL Mean Corpuscular Hemoglobin 26.7 L 28.0-32.0 pg Mean Corpuscular Hemoglobin Concent 33.3 32.0-36.0 g/dL Red Cell Distribution Width 13.5 11.8-14.3 % Platelet Count 213 140-450 10^3/uL Mean Platelet Volume 9.3 6.9-10.8 fL Neutrophils (%) (Auto) 67.8 37.0-80.0 % Lymphocytes (%) (Auto) 20.0 10.0-50.0 % Monocytes (%) (Auto) 10.1 0.0-12.0 % Eosinophils (%) (Auto) 1.3 0.0-7.0 % Basophils (%) (Auto) 0.8 0.0-2.0 % Neutrophils # (Auto) 3.8 1.6-8.6 10 ^3/uL Lymphocytes # (Auto) 1.1 0.4-5.4 10 ^3/uL Monocytes # (Auto) 0.6 0-1.3 10 ^3/uL Eosinophils # (Auto) 0.1 0-0.8 10 ^3/uL Basophils # (Auto) 0 0-0.2 10 ^3/uL Nucleated Red Blood Cells 0.1 % Sodium Level 141 136-145 mmol/L Potassium Level 3.9 3.5-5.1 mmol/L Chloride Level 104 98-107 mmol/L Carbon Dioxide Level 27 20-31 mmol/L Anion Gap 10 5-15 Blood Urea Nitrogen 11 9-23 mg/dL Creatinine 0.69 0.550-1.02 mg/dL Glomerular Filtration Rate Calc 111 >90 mL/min BUN/Creatinine Ratio 15.9 10.0-20.0 Serum Glucose 83 74-106 mg/dL Calcium Level 9.3 8.7-10.4 mg/dL Total Bilirubin 0.3 0.2-1.0 mg/dL Aspartate Amino Transferase (AST) 18 13-40 U/L Alanine Aminotransferase (ALT) 19 7-40 U/L Alkaline Phosphatase 64 46-116 U/L Troponin I High Sensitivity 7 </=34 ng/L B-Type Natriuretic Peptide 2.38 0-100 pg/mL Total Protein 7.8 5.7-8.2 g/dL Albumin 4.6 3.2-4.8 g/dL Assessment/Plan Plan Patient is a 40-year-old female who presented to the hospital with left cough pain and swelling. She is found to have acute DVT. Cardiology is involved for cardiac aspects of care. Patient is known to our practice from outside and before. Does have history of SVT/inappropriate sinus tachycardia for which usually takes every other day of digoxin and also twice daily metoprolol. Few months back she was diagnosed with lupus/Sjogren's disease also for which follows with Rheumatology. Denies chest pains. Denies recent palpitations. Mentions compliance to medications. Did have a travel to out of state but it was around 3 weeks ago. Not in acute distress. No JVD. Not using accessory muscles of breathing. No carotid bruit. No goiter. Lungs are clear to auscultation. Cardiac: Regular, no thrill/gallop. Abdomen is soft. There is no gross mass/hepatomegaly. Dorsalis pedis is 2+ bilateral. No lateralized neurologic deficit. Does complain of mild left calf tenderness. Past medical history includes anxiety/depression, asthma, hyperlipidemia, old history of cervical cancer, obstructive sleep apnea on CPAP, short SVTs, inappropriate sinus tachycardia, old history of hysterectomy and tubal ligation. She was diagnosed with lupus/Sjogren's few months back for which follows with Rheumatology. Echocardiogram of January 2023 revealed ejection fraction of 60-65%. Normal diastolic and mobile interatrial septum. Echocardiogram of March 21, 2025 revealed ejection fraction of 60-65%, normal diastolic, mobile interatrial septum and right ventricular systolic pressure was less than 35 mm Hg Nuclear stress test of February 2023 revealed normal perfusion and ejection fraction of 68% Creatinine: 0.65 - 0.69 Potassium: 4.0 - 3.9 Tele shows sinus rhythm Venous Doppler of lower extremity showed left leg DVT Patient is a 40-year-old female who presented with acute left calf DVT. It seems that it has been unprovoked DVT. Cardiology was involved for cardiac aspects of care. Does have history of inappropriate sinus tachycardia and short SVTs as cardiac risks. These cardiac risks to not predisposed to DVT. It is of note that the patient does have history of lupus/Sjogren which may be a reason/risk factor for DVT. Also, the patient had cervical cancer years ago. Acute DVT History of inappropriate sinus tachycardia/SVT Lupus/Sjogren disease History of cervical cancer Hyperlipidemia Asthma Obstructive sleep apnea Cardiac suggestion for management: Manage on telemetry Follow-up electrolytes and kidney function tests and correct abnormalities Keep potassium above 4 and magnesium above 2 Request for EKG Request for thyroid function tests Consider CT angio of the lungs Request for BNP/troponin Request for echocardiogram Full anticoagulation is advised (patient on heparin drip, can be changed to oral anticoagulation for example Eliquis prior to discharge) May consider rheumatology evaluation/follow-up Further evaluation and management depends on the above and clinical course Thank you for consultation A total of 75 minutes was spent reviewing the patient record, examining the patient, making a diagnostic and therapeutic plan, discussing this plan with medical personnel, following up on diagnostic studies and following the patient for clinical stability excluding any and all procedures. At least 50% of this time was spent in direct, [id number] contact. Thank you for allowing me to participate in this patient's care. Further recommendations will depend on patient's clinical course. Please do not hesitate to contact me if you have any questions or concerns. This medical document was created using electronic medical record system with [employer] computerized dictation system. Although this document has been carefully reviewed, there may still be some phonetic and typographical errors. These areas are purely typographical due to the imperfection of the software programs, and do not reflect any compromise in the patient's medical care. Plan discussed with: Patient, Other (nurse) ANNIA QUINTANILLA MD May 06, 2025 15:35
[2025-05-06 16:59] VITALS: BP 110/55; PULSE 82; RESP 18; TEMP 98.3; O2SAT 97
[2025-05-06 17:51] LABS: INR 1.0 (0.9-1.15); Prothrombin Time 10.6 sec (9.3-11.8)
[2025-05-06 17:55] LABS: Partial Thromboplastin Time 73.3 SEC (24.5-34.5)
--- NOTE | 2025-05-06 18:12 | DVH ---
CTA Chest with intravenous contrast INDICATION: LLE DVT COMPARISON: XY CHEST TWO VIEWS ROUTINE on DOS: 09/01/24, XY CHEST PORTABLE on DOS: 01/27/24, XY CHEST PORTABLE on DOS: 01/19/24, XY CHEST XRAY 1 VIEW on DOS: 07/27/23, XY CHEST PORTABLE on DOS: 01/28/23 TECHNIQUE: Multidetector spiral CTA of the chest was performed of the chest with intravenous contrast . PULMONARY ANGIOGRAPHY PROTOCOL was utilized using a bolus-tracking technique centered on the main p ulmonary artery. Axial, coronal and sagittal multiplanar and MIP reformats were performed. Radiation Dose : 1. Chest: CTDI volume is 8.88 mGy. Dose-length product is 2.54 mGy*cm The dose indicators for CT are the volume Computed Tomography (CT) Dose Index (CTDIvol) and the Dose Length Product (DLP), and are measured in units of mGy and mGy-cm, respectively. These indicators are not patient dose, but values generated from the CT scanner acquisition factors. The report includes radiation exposure data for exposures received during this examination. Findings: Pulmonary artery: No pulmonary embolism Lower neck: Normal thyroid. Lungs: No focal consolidation, pleural effusion or pneumothorax. Heart/Vascular Structures: Normal heart size. No pericardial effusion. Lymph Nodes: No adenopathy Pleura: No pleural effusion or significant pneumothorax. Musculoskeletal: No acute osseous abnormality. Soft tissues: Normal. Upper abdomen: Limited portions of the upper abdomen are unremarkable. IMPRESSION: 1. No pulmonary embolism. 2. No acute thoracic finding.
--- NOTE | 2025-05-06 18:36 | DVHPN2 ---
Subjective 40-year-old female who is here for left lower extremity DVT currently on heparin drip. Patient denies any recent surgery, recent trauma, recent long drive or long flight. Denies any bed-bound activity. 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 Medications Current Medications Medications Dose Ordered Sig/Jose Route Start Time Stop Time Status Last Admin Dose Admin Heparin Sodium/ Dextrose 250 ml @ 13 mls/hr [id number] IV 05/06/25 03:00 05/06/25 04:03 13 MLS/HR Sodium Chloride 10 ml Q8HR IV 05/05/25 22:00 05/06/25 13:34 10 ML Docusate Sodium 100 mg BIDPRN PRN PO 05/05/25 20:00 Acetaminophen 650 mg Q6HP PRN PO 05/05/25 20:00 Acetaminophen/ Hydrocodone Bitart 1 tab Q4HP PRN PO 05/05/25 20:00 Hydromorphone HCl 0.5 mg Q4HP PRN IV 05/05/25 20:00 Ondansetron HCl 4 mg Q4HP PRN IV 05/05/25 20:00 Atorvastatin Calcium 20 mg HS PO 05/05/25 22:00 05/05/25 22:38 20 MG Metoprolol Tartrate 25 mg BID PO 05/05/25 22:00 05/06/25 09:17 25 MG Promethazine HCl/ Dextromethorphan 5 ml TID PO 05/05/25 22:00 05/05/25 22:38 5 ML Azathioprine 100 mg BID PO 05/06/25 22:00 Digoxin 0.125 mg MWF PO 05/08/25 10:00 Fluticasone Propionate 50 mcg Q12HR EACHNOSTRI 05/06/25 22:00 Laboratory Results Laboratory Tests 05/06/25 03:08 Chemistry Test 05/06/25 03:08 Albumin 4.6 g/dL (3.2-4.8) Calcium Level 9.3 mg/dL (8.7-10.4) Total Protein 7.8 g/dL (5.7-8.2) Coagulation Test 05/06/25 03:08 05/06/25 10:44 05/06/25 17:04 Prothrombin Time 10.4 sec (9.3-11.8) 10.4 sec (9.3-11.8) 10.6 sec (9.3-11.8) Prothrombin Time INR 0.98 (0.9-1.15) 0.98 (0.9-1.15) 1.00 (0.9-1.15) Activated Partial Thromboplast Time 29.2 SEC (24.5-34.5) 66.3 SEC (24.5-34.5) H 73.3 SEC (24.5-34.5) *H Cardiac Markers Test 05/06/25 03:08 B-Type Natriuretic Peptide 2.38 pg/mL (0-100) LFT Test 05/06/25 03:08 Alanine Aminotransferase (ALT) 19 U/L (7-40) Alkaline Phosphatase 64 U/L (46-116) Aspartate Amino Transferase (AST) 18 U/L (13-40) Total Bilirubin 0.3 mg/dL (0.2-1.0) Assessment/Plan Assessment/Plan 80-year-old female with a known history of lupus, history of SVT, hypertension, dyslipidemia, fibromyalgia who initially presented to hospital with a left lower extremity pain especially in the calf muscles found to have 1. Left lower extremity DVT 2. Left lower extremity pain secondary to 1. 3. History of SVT 4. Lupus 5. Hypertension 6. Dyslipidemia 7. Fibromyalgia 8. Anxiety disorder -continue heparin drip, risks benefits and alternatives of heparin drip including life-threatening bleeding disability explained to the patient in detail who understand verbalized understanding and agreeable to plan. We will switch to Tracy ingram. Discharge plan in next 24 hours. Plan discussed with: Patient My Orders Orders - LENY MARKS MD Procedure Category Date Status Time * Cardiology Consult CONS 05/06/25 Transmitted 10:25 Azathioprine Tablet PHA 05/06/25 In Process (Imuran Tablet) 22:00 Digoxin Tablet PHA 05/08/25 In Process (Lanoxin Tablet) 10:00 Fluticasone Nasal PHA 05/06/25 In Process Independence (Flonase Independence) 22:00 Date of Service: May 06, 2025 Billing Provider: LENY MARKS MD Common Visit Codes: [id number] INP/OBS CARE(MOD) LENY MARKS MD May 06, 2025 18:36
[2025-05-06 21:00] VITALS: BP 111/62; PULSE 84; RESP 18; TEMP 98; O2SAT 97
[2025-05-06] MEDS: FLUTICASONE PROP NASAL SPR 0.05 % (50MCG) 16GM EACHNOSTRI SCH (21:59)
[2025-05-06 23:55] LABS: INR 1.01 (0.9-1.15); Prothrombin Time 10.7 sec (9.3-11.8)
[2025-05-06 23:59] LABS: Partial Thromboplastin Time 83.1 SEC (24.5-34.5)
[2025-05-07 05:00] VITALS: BP 112/56; PULSE 73; RESP 16; TEMP 98; O2SAT 97
[2025-05-07 07:33] LABS: Hematocrit 40.6 % (36.0-46.0); Hemoglobin 13.4 g/dL (12.2-16.2); Mean Corpuscular Hemoglobin 26.4 pg (28.0-32.0); Mean Corpuscular Volume 80.3 fL (80.0-100.0); Nucleated Red Blood Cells % 0.1 %
[2025-05-07 07:45] LABS: INR 1.0 (0.9-1.15); Partial Thromboplastin Time 66.6 SEC (24.5-34.5); Prothrombin Time 10.6 sec (9.3-11.8)
[2025-05-07 07:47] LABS: Alanine Aminotransferase 28 U/L (7-40); Albumin 4.6 g/dL (3.2-4.8); Alkaline Phosphatase 54 U/L (46-116); Anion Gap 9 (5-15); BUN/Creatinine Ratio 13.2 (10.0-20.0); Calcium 9.2 mg/dL (8.7-10.4); Carbon Dioxide 28 mmol/L (20-31); Chloride 104 mmol/L (98-107); Glucose 89 mg/dL (74-106); Potassium 4.2 mmol/L (3.5-5.1); Sodium 141 mmol/L (136-145); Total Protein 7.4 g/dL (5.7-8.2)
[2025-05-07 07:48] LABS: Bilirubin, Total 0.5 mg/dL (0.2-1.0)
[2025-05-07 07:50] LABS: Blood Urea Nitrogen 9 mg/dL (9-23)
--- NOTE | 2025-05-07 08:24 | DVHPN2 ---
Progress Note - Dictate Date Seen: May 07, 2025 Medical Necessity Reason Pt with a Central, PICC or Fol: No vital signs Vital Sign Date Time Temp Pulse Resp B/P (MAP) Pulse Ox O2 Delivery O2 Flow Rate FiO2 05/07/25 05:00 98.0 73 16 112/56 (74) 97 98.0 05/05/25 23:40 Room Air* 0 21 Total Intake and Output 05/06/25 05/06/25 05/07/25 15:00 23:00 07:00 Intake Total 150 ml Balance 150 ml medications Current Medications Medications Dose Ordered Sig/Jose Route Start Time Stop Time Status Last Admin Dose Admin Heparin Sodium/ Dextrose 250 ml @ 13 mls/hr [id number] IV 05/06/25 03:00 05/06/25 22:28 13 MLS/HR Sodium Chloride 10 ml Q8HR IV 05/05/25 22:00 05/07/25 06:50 10 ML Docusate Sodium 100 mg BIDPRN PRN PO 05/05/25 20:00 Acetaminophen 650 mg Q6HP PRN PO 05/05/25 20:00 Acetaminophen/ Hydrocodone Bitart 1 tab Q4HP PRN PO 05/05/25 20:00 Hydromorphone HCl 0.5 mg Q4HP PRN IV 05/05/25 20:00 Ondansetron HCl 4 mg Q4HP PRN IV 05/05/25 20:00 Atorvastatin Calcium 20 mg HS PO 05/05/25 22:00 05/05/25 22:38 20 MG Metoprolol Tartrate 25 mg BID PO 05/05/25 22:00 05/06/25 09:17 25 MG Promethazine HCl/ Dextromethorphan 5 ml TID PO 05/05/25 22:00 05/05/25 22:38 5 ML Azathioprine 100 mg BID PO 05/06/25 22:00 Digoxin 0.125 mg MWF PO 05/08/25 10:00 Fluticasone Propionate 50 mcg Q12HR EACHNOSTRI 05/06/25 22:00 Patient Own Medication 1 DAILY PO 05/07/25 10:00 UNV laboratory and microbiology Laboratory Tests 05/07/25 07:01 Test 05/07/25 07:01 Range/Units Serum Glucose 89 74-106 mg/dL Assessment/Plan Patient is a 40-year-old female who presented to the hospital with left cough pain and swelling. She is found to have acute DVT. Cardiology is involved for cardiac aspects of care. Patient is known to our practice from outside and before. Does have history of SVT/inappropriate sinus tachycardia for which usually takes every other day of digoxin and also twice daily metoprolol. Few months back she was diagnosed with lupus/Sjogren's disease also for which follows with Rheumatology. Denies chest pains. Denies recent palpitations. Mentions compliance to medications. Did have a travel to out of [facility] but it was around 3 weeks ago. Not in acute distress. No JVD. Not using accessory muscles of breathing. No carotid bruit. No goiter. Lungs are clear to auscultation. Cardiac: Regular, no thrill/gallop. Abdomen is soft. There is no gross mass/hepatomegaly. Dorsalis pedis is 2+ bilateral. No lateralized neurologic deficit. Does complain of mild left calf tenderness. Past medical history includes anxiety/depression, asthma, hyperlipidemia, old history of cervical cancer, obstructive sleep apnea on CPAP, short SVTs, inappropriate sinus tachycardia, old history of hysterectomy and tubal ligation. She was diagnosed with lupus/Sjogren's few months back for which follows with Rheumatology. Echocardiogram of January 2023 revealed ejection fraction of 60-65%. Normal diastolic and mobile interatrial septum. Echocardiogram of March 21, 2025 revealed ejection fraction of 60-65%, normal diastolic, mobile interatrial septum and right ventricular systolic pressure was less than 35 mm Hg Nuclear stress test of February 2023 revealed normal perfusion and ejection fraction of 68% Creatinine: 0.65 - 0.69 Potassium: 4.0 - 3.9 Trop (high sensitive): 7 - 9 - 9 BNP: 2.38 TSH: 0.95 Tele shows sinus rhythm Venous Doppler of lower extremity showed left leg DVT CTA of lungs revealed: IMPRESSION: 1. No pulmonary embolism. 2. No acute thoracic finding. Patient is a 40-year-old female who presented with acute left calf DVT. It seems that it has been unprovoked DVT. Cardiology was involved for cardiac aspects of care. Does have history of inappropriate sinus tachycardia and short SVTs as cardiac risks. These cardiac risks to not predisposed to DVT. It is of note that the patient does have history of lupus/Sjogren which may be a reason/risk factor for DVT. Also, the patient had cervical cancer years ago. Acute DVT History of inappropriate sinus tachycardia/SVT Lupus/Sjogren disease History of cervical cancer Hyperlipidemia Asthma Obstructive sleep apnea Cardiac suggestion for management: Manage on telemetry Follow-up electrolytes and kidney function tests and correct abnormalities Keep potassium above 4 and magnesium above 2 Echocardiogram, can be performed as outpatient Full anticoagulation is advised, you can change to Eliquis (10 mg PO BID for one week and then 5 mg PO BID) May consider rheumatology evaluation/follow-up Cardiac akers is stable and can be followed as outpatient Further evaluation and management depends on the above and clinical course A total of 55 minutes was spent reviewing the patient record, examining the patient, making a diagnostic and therapeutic plan, discussing this plan with medical personnel, following up on diagnostic studies and following the patient for clinical stability excluding any and all procedures. At least 50% of this time was spent in direct, [id number] contact. Thank you for allowing me to participate in this patient's care. Further recommendations will depend on patient's clinical course. Please do not hesitate to contact me if you have any questions or concerns. This medical document was created using electronic medical record system with [employer] computerized dictation system. Although this document has been carefully reviewed, there may still be some phonetic and typographical errors. These areas are purely typographical due to the imperfection of the software programs, and do not reflect any compromise in the patient's medical care. Plan discussed with: Patient, Other (nurse) ANNIA QUINTANILLA MD May 07, 2025 08:24
--- NOTE | 2025-05-07 08:45 | CONS ---
Pharmacy Clinical Information: APTT result of 83.1 received from 2310 draw on 05/06/25. Heparin adjusted to 1100 units per hour (11mL/hr) per verbal order on 05/07 @0011. Nurse Aceves adjusted rate at 0011. APTT/PT ordered for 0600 per PRx protocol. APTT result of 66.6 received from 0701 draw on 05/07. Please continue heparin at 1100 units per hour (11mL/hr); new order placed at 0845. Nurse Woo confirmed and read back order. APTT/PT ordered for 1400 per PRx protocol. BELA WILCOX PHARMACIST May 07, 2025 08:45
[2025-05-07] MEDS: HEPARIN DRIP/D5W 100UNITS/ML 250 ML IV SCH (08:52)
[2025-05-07 09:00] VITALS: BP 116/59; PULSE 82; RESP 16; TEMP 98; O2SAT 96
[2025-05-07 13:00] VITALS: BP 103/62; PULSE 84; RESP 16; TEMP 98.9; O2SAT 99
[2025-05-07 14:42] LABS: INR 1.01 (0.9-1.15); Partial Thromboplastin Time 62.5 SEC (24.5-34.5); Prothrombin Time 10.7 sec (9.3-11.8)
--- NOTE | 2025-05-07 14:58 | CONS ---
Pharmacy Clinical Information: HEPARIN PER DVT PROTOCOL: APTT result for 1359 draw was 62.5, therapeutic. Please continue heparin at 1100 units per hour (11mL/hr). APTT/PT ordered for 1999 per PRx protocol. Read back and confirmed by MARY Lacy @ 1455. BELA WILCOX PHARMACIST May 07, 2025 14:58
[2025-05-07 17:00] VITALS: BP 120/69; PULSE 92; RESP 16; TEMP 98.8; O2SAT 95
[2025-05-07] MEDS ORDERED: APIX5TAB PO (18:10)
--- NOTE | 2025-05-07 18:14 | DVHDS2 ---
Discharge Summary Date of Admission May 05, 2025 at 19:55 Date of Discharge: May 07, 2025 Labs/Diagnostic Data: Laboratory Results Test 05/07/25 13:59 05/07/25 07:01 05/06/25 17:04 05/06/25 03:08 Prothrombin Time 10.7 sec (9.3-11.8) Prothrombin Time INR 1.01 (0.9-1.15) Activated Partial Thromboplast Time 62.5 SEC (24.5-34.5) White Blood Count 5.3 10^3/uL (4.4-10.8) Red Blood Count 5.06 10^6/uL (4.0-5.20) Hemoglobin 13.4 g/dL (12.2-16.2) Hematocrit 40.6 % (36.0-46.0) Mean Corpuscular Volume 80.3 fL (80.0-100.0) Mean Corpuscular Hemoglobin 26.4 pg (28.0-32.0) Mean Corpuscular Hemoglobin Concent 32.9 g/dL (32.0-36.0) Red Cell Distribution Width 13.6 % (11.8-14.3) Platelet Count 221 10^3/uL (140-450) Mean Platelet Volume 8.9 fL (6.9-10.8) Neutrophils (%) (Auto) 69.1 % (37.0-80.0) Lymphocytes (%) (Auto) 20.6 % (10.0-50.0) Monocytes (%) (Auto) 8.3 % (0.0-12.0) Eosinophils (%) (Auto) 1.1 % (0.0-7.0) Basophils (%) (Auto) 0.9 % (0.0-2.0) Neutrophils # (Auto) 3.7 10 ^3/uL (1.6-8.6) Lymphocytes # (Auto) 1.1 10 ^3/uL (0.4-5.4) Monocytes # (Auto) 0.4 10 ^3/uL (0-1.3) Eosinophils # (Auto) 0.1 10 ^3/uL (0-0.8) Basophils # (Auto) 0 10 ^3/uL (0-0.2) Nucleated Red Blood Cells 0.1 % Sodium Level 141 mmol/L (136-145) Potassium Level 4.2 mmol/L (3.5-5.1) Chloride Level 104 mmol/L (98-107) Carbon Dioxide Level 28 mmol/L (20-31) Anion Gap 9 (5-15) Blood Urea Nitrogen 9 mg/dL (9-23) Creatinine 0.68 mg/dL (0.550-1.02) Glomerular Filtration Rate Calc 111 mL/min (>90) BUN/Creatinine Ratio 13.2 (10.0-20.0) Serum Glucose 89 mg/dL (74-106) Calcium Level 9.2 mg/dL (8.7-10.4) Total Bilirubin 0.5 mg/dL (0.2-1.0) Aspartate Amino Transferase (AST) 24 U/L (13-40) Alanine Aminotransferase (ALT) 28 U/L (7-40) Alkaline Phosphatase 54 U/L (46-116) Total Protein 7.4 g/dL (5.7-8.2) Albumin 4.6 g/dL (3.2-4.8) Troponin I High Sensitivity 9 ng/L (</=34) Thyroid Stimulating Hormone (TSH) 0.95 uIU/mL (0.55-4.78) B-Type Natriuretic Peptide 2.38 pg/mL (0-100) Other Laboratory Tests 05/07/25 07:01 Brief Hx & Hospital Course: 80-year-old female with a known history of lupus, history of SVT, hypertension, dyslipidemia, fibromyalgia who initially presented to hospital with a left lower extremity pain especially in the calf muscles found to have left lower extremity DVT. Patient was managed with a heparin drip. The patient will be switched to Eliquis. Patient had does have known history of SVT/in appropriate echogenic tachycardia 30 on digoxin and beta carisa. Patient was cleared by Dr. León to be discharged. Patient will be discharged on Eliquis. Risks benefits and alternatives of Eliquis including life-threatening bleeding , disability, explained to the patient in detail who understood and verbalized the understanding and agreement with the plan. Condition at Discharge: Stable Final Diagnosis/Problems List 80-year-old female with a known history of lupus, history of SVT, hypertension, dyslipidemia, fibromyalgia who initially presented to hospital with a left lower extremity pain especially in the calf muscles found to have 1. Left lower extremity DVT 2. Left lower extremity pain secondary to 1. 3. History of SVT 4. Lupus 5. Hypertension 6. Dyslipidemia 7. Fibromyalgia 8. Anxiety disorder Discharge Disposition: Home SNF Discharge Will this Physician continue t: No Discharge Instruct/Medications Diet: Cardiac 2g Na,low cholest Activity: No Restrictions, As Tolerated Follow Up/Referral: Polyp with the PCP in 1-2 weeks Follow up with Cardiology in 1-2 weeks Medications: Resume medications as prescribed . Scheduled Apixaban Base (Eliquis), 10 MG PO BID Apixaban Base (Eliquis), 5 MG PO BID Atorvastatin Calcium (Atorvastatin Calcium), 20 MG PO HS Atorvastatin Calcium (Lipitor), 1 TAB PO BID, (Reported) Azathioprine (Azathioprine), 100 MG PO BID, (Reported) Azithromycin (Zithromax Tablet), 250 MG PO DAILY Digoxin (Digoxin), 125 MCG PO MWF, (Reported) Linaclotide Base (Linzess), 290 MCG PO DAILY, (Reported) Metoprolol Succinate (Metoprolol Succinate Er), 25 MG PO DAILY, (Reported) Metoprolol Tartrate (Lopressor), 25 MG PO BID Promethazine-Dm (Promethazine Dm 6.25-15 mg/5Ml), 5 ML PO TID Scheduled PRN Alprazolam (Xanax), 1 TAB PO Q8HP PRN Miscellaneous Medications Beclomethasone Dipropionate (Qvar Redihaler), 40 MCG IN, (Reported) Ergocalciferol (Vitamin D2), 2,000 UNIT PO, (Reported) Fluticasone Propionate (Nasal) (Flonase Allergy Relief), 50 MCG NA, (Reported) Discharge Statement: "Patient was advised to return to the ER or call 911 if any headaches, dizziness, shortness of breath, chest pain, abdominal pain, bleeding, fevers, or worsening of medical condition. Patient was counseled about treatment plan, medications, possible side effects, patientverbalized understanding. All questions were answered to the best of my ability. This discharge took greater then 30 minutes in planning, reviewing documentation, counseling the patient, and discussing with other team members." ASSESSMENT ASSESSMENT Assessment 80-year-old female with a known history of lupus, history of SVT, hypertension, dyslipidemia, fibromyalgia who initially presented to hospital with a left lower extremity pain especially in the calf muscles found to have 1. Left lower extremity DVT 2. Left lower extremity pain secondary to 1. 3. History of SVT 4. Lupus 5. Hypertension 6. Dyslipidemia 7. Fibromyalgia 8. Anxiety disorder Date of Service: May 07, 2025 Billing Provider: LENY MARKS MD Common Visit Codes: 04111-YLS/OBS DISCH DAY >30min LENY MARKS MD May 07, 2025 18:14
[2025-05-07 18:26] VITALS: BP 116/59; PULSE 82; TEMP 37.1
[2025-05-07] MEDS: APIXABAN 5 MG TAB PO SCH (18:45)
--- NOTE | 2025-05-08 08:24 | ECG ---
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
[2025-05-08] MEDS ORDERED: DIGOXIN 0.125 MG TAB PO SCH (10:00)
--- NOTE | 2025-05-08 17:53 | DVHSR ---
APPROVED REPORT EXAM: Two-dimensional and M-mode echocardiogram with Doppler and color Doppler. Blood Pressure: 112/56 mmHg INDICATION LLE DVT RISK FACTORS Height: 5'6", Weight: 161 DIMENSIONS LVDd4.5 (3.8-5.7cm)LA (2D)3.6 (1.9-4.0cm)Aortic Root3.5 (2.0-3.7cm) LVDs3.0 (2.5-4.0cm)LA (MM) (1.9-4.0cm)Aortic Cusp Exc1.9 (1.5-2.0cm) EF (%) 60.0 (55-70%)Rt. Atrium3.4 (1.9-4.0cm)Asc. Aorta cm IVSd0.9 (0.7-1.1cm)RV (D) (1.8-2.4cm) PWd0.9 (0.7-1.1cm) Mitral Valve MitralMitral Stenosis E wave0.68m/sMV Mean GR.mmHg A wave0.57m/sMV Peak GR.mmHg E/A ratio1.22D MVAcm2 DECEL [id number] 1/2 Tim[place] Aortic Valve Aortic ValveAortic Stenosis V11.05m/Frantz Mean GR.3mmHg V21.09m/Frantz Peak GR.5mmHg LVOT Diameter2.0 (1.8-2.4cm)Doppler AVA3.02cm2 Other Information Technically limited study due to body habitus. Conclusion Left ventricle: Left ventricle was normal-sized with normal systolic function. LVEF was 65-70%. Th ere was no wall motion abnormality. Diastolic function was considered normal. Right ventricle was normal-sized with normal systolic function. Both atria were normal-sized. Aortic valve was not well visualized. There was no aortic insufficiency/stenosis. There was no tric uspid/mitral regurgitation. Pulmonary valve was not well visualized. As there was no good tricuspid regurgitation jet, right ventricular systolic pressure could not be es timated. There was no echocardiographic evidence for pulmonary hypertension. There was no pericardial effusion.
[2025-05-14] MEDS ORDERED: APIXABAN 5 MG TAB PO SCH (22:00)
== END 2025-05-07 18:14 | disposition home or self-care (01) | DRG 197 ==
LOC: ER 12:43 → OVERFLOW 19:55
PROVIDERS: ADMIT Internal Medicine; ATTEND Internal Medicine
DX: I82.412 Acute embolism and thrombosis of left femoral vein (principal); I82.432 Acute embolism and thrombosis of left popliteal vein; M32.9 Systemic lupus erythematosus, unspecified; E78.5 Hyperlipidemia, unspecified; F41.9 Anxiety disorder, unspecified; I10 Essential (primary) hypertension; M35.00 Sjogren syndrome, unspecified; M79.7 Fibromyalgia; J45.909 Unspecified asthma, uncomplicated; G47.33 Obstructive sleep apnea (adult) (pediatric); Z79.899 Other long term (current) drug therapy; Z88.0 Allergy status to penicillin; Z88.2 Allergy status to sulfonamides; Z79.2 Long term (current) use of antibiotics; Z90.710 Acquired absence of both cervix and uterus; Z98.51 Tubal ligation status; Z85.41 Personal history of malignant neoplasm of cervix uteri; Z79.01 Long term (current) use of anticoagulants
CPT/HCPCS: 36415; 71275; 80048; 80053; 83880; 84443; 84484; 85025; 85610; 85730; 93005; 93306; 93971; 96365; 96375; G0378